=== PATIENT | male | born 1945 | race Caucasian/White ===

== ENCOUNTER 2016-12-20 15:28 | Observation (INO) | payer MEDICARE ==
[~2016-12-20] VITALS: Ht 172.7 cm; Wt 128.3 kg
--- NOTE | ~2016-12-20 | EC ---
PATIENT:ISAEL KENDALL DATE OF SERVICE: 12/20/16 SEX: M MEDICAL RECORD: [id number] DATE OF : [birth year] LOCATION:D.M2 D.212 AGE OF PATIENT: 71 ADMISSION DATE: 12/20/16 REFERRING PHYSICIAN: INTERPRETING PHYSICIAN: ANTOINE JASON M.D. ECHOCARDIOGRAM REPORT ECHO CHARGES 4 ECHO COMPLETE CLINICAL DIAGNOSIS: A-FIB ECHOCARDIOGRAPHIC MEASUREMENTS (adult normal given) AC root (d.<3.7cm) 3.5 LV Septum d (<1.2 cm> 2.0 Valve Excursion 1.9 LV Septum (systole) 2.7 Left Atria (s.<4.0cm> 4.4 LVPW d(<1.2cm) 1.9 RV (d.<2.3cm) 3.5 LVPW (sytole) 2.5 LV diastole(<5.6CM) 4.8 MV E-F(>70mm/sec) LV systole 2.6 LVOT Diameter 2.0 MV exc.(>10mm) Est.ejection fraction (50-75%) Pericardial Effusion N DOPPLER: LVIT A E 118 LA RVSP 38.1 LVOT 118 AOP1/2T Asc. Ao 223 RVOT 95.0 RA PA 127 AV Gradient Peak 20.0 AV Mean 9.1 AV Area 1.3 MV Gradient Peak 8.7 MV Mean 3.5 MV Area COMMENTS: Postal Delivery Officer: Andra ESCALANTEOE Hvac Engineering Technician:Erika Jason TAPE# PACS DATE OF SERVICE: 12/21/2016 REFERRING PHYSICIAN: Kaley Daniel MD INDICATION: Atrial fibrillation. DESCRIPTION: Left ventricle demonstrates left ventricular hypertrophy. No wall motion abnormalities are noted. Estimated ejection fraction is 55%. Mitral valve is structurally normal. There is moderate regurgitation seen. Left atrium is mildly dilated. The aortic valve is trileaflet. There is trivial ECHOCARDIOGRAM REPORT [id number] ISAEL KENDALL insufficiency seen, but no evidence of stenosis. Right ventricle is mildly dilated. Tricuspid valve is normal. There is mild to moderate regurgitation noted. Right ventricular systolic pressure is elevated at 38 mmHg. There is no pericardial effusion seen. IMPRESSION: 1. Left ventricular hypertrophy with preserved ejection fraction of 55%. 2. Moderate mitral regurgitation. 3. Mild to moderate tricuspid regurgitation. TRANSINT:[id number] Voice Confirmation ID: [id number] DOCUMENT ID: [id number] ANTOINE JASON M.D. CC: [id number] DICTATION DATE: 12/22/16810 SOCIAL WORK SUPERVISOR: 12/22/16 1056 ADM IN [place] [id number] [place] [address]
--- NOTE | ~2016-12-20 | OP ---
PATIENT NAME: ISAEL KENDALL MEDICAL RECORD: [id number] :46 LOCATION:D. D.2120 ADMISSION DATE:12/20/16 SURGEON: ANTOINE OLEARY M.D. DATE OF OPERATION: 12/22/2016 REFERRING PHYSICIAN: Kaley Daniel MD PROCEDURES PERFORMED: 1. Selective coronary angiography. 2. Left heart catheterization with ventriculogram. 3. PTCA and stent placed in the circumflex artery. INDICATION: A 71-year-old gentleman presents with unstable angina and abnormal cardiac enzymes. EQUIPMENT USED: Diagnostic 5-Bermudian JL4, Almas right, pigtail catheter. INTERVENTION: A 6-Bermudian EBU 3.75 guide, BMW guide wire, 3.5 x 15 mm Integrity stent. TECHNIQUE: A 5-Bermudian sheath was inserted in retrograde fashion in the right common femoral artery. Next, selective coronary angiography was performed in standard 5-Bermudian JL4 and Almas right. Left heart catheterization performed using pigtail catheter. CORONARY ANATOMY: 1. Left main: Left main trunk is large in caliber. It gives rise to the LAD and circumflex. It is angiographically normal. 2. LAD: This is a large caliber vessel extending to the apex. It has mild irregularities throughout its course, but nothing worse than 20%. 3. Circumflex: This vessel is large in caliber. The proximal vessel has a hazy 70% to 80% stenosis, which represents a ruptured plaque. 4. Right coronary: This vessel is moderate in caliber and dominant. The proximal vessel has been stented. The stent is widely patent. There is no evidence of restenosis. 5. Left ventricle: Left ventricle is slightly enlarged. The apex is severely hypokinetic. Its ejection is in the order of 30%. DESCRIPTION OF INTERVENTION: A 6-Bermudian sheath was inserted in retrograde fashion in the right common femoral artery. Next, 100 units per kilogram of heparin was infused. A 6-Bermudian EBU 3.75 guide was advanced and engaged in the left main coronary artery. Next, a BMW guide wire was placed in the distal vessel. A 3.5 x 15 mm Integrity stent was placed across the stenosis in the proximal circumflex. The stent was deployed at 16 atmospheres. Injection shows stent to be widely patent with 0% residual stenosis. There is marked improvement in distal flow. At this point, the wire and guide were removed. IMPRESSION: Successful percutaneous transluminal coronary angioplasty and stenting to the circumflex with 0% residual stenosis. TRANSINT:[id number] Voice Confirmation ID: [id number] DOCUMENT ID: [id number] OPERATIVE REPORT [id number] ISAEL KENDALL TIMOTHY E M.D. CC: [id number] DICTATION DATE: 12/22/16937 SCHEDULING ADMINISTRATOR: 12/22/16 1312 ADM IN [facility] [address] [place] [address]
--- NOTE | ~2016-12-20 | HEMODYNAMI ---
PATIENT:ISAEL KENDALL MEDICAL RECORD: [id number] : 46 LOCATION:[address] ADMISSION DATE: 12/20/16 Generatedon:12/22/20169:40 Patient name: ISAEL KENDALL Patient #: [id number] SSN: : 1945 Date of study: 12/22/2016 Page: Of Hemodynamic Procedure Report Patient Data Patient Demographics Procedure consent was obtained First Name: ISAEL Gender: Male Last Name: FAIZA : 1945 Patient #: [id number] Age: 71 year(s) Race: Unknown Additional ID: [id number] Contact details Address: , State: [place] City: [facility] Zip code: [address] Past Medical History Allergies Allergen Reaction Date Comments Reported Morphine 12/22/2016 Admission Admission Data Admission Date: 12/20/2016 Admission Time: 18:21 Room #: D.2120 Lab Results Lab Result Date: 12/22/2016 Lab Result Time: 0:00 Biochemistry Name Units Result Min Max BUN mg/dl 25 --(----)-* 7 18 Creatinine mg/dl 1.2 --(---*)-- 0.6 1.3 CBC Name Units Result Min Max Hemoglobin g/dl 13.4 -*(----)-- 13.5 17.5 Procedure Procedure Types Cath Procedure Diagnostic Procedure [facility] w/Coronaries PCI Procedure Coronary Stent Initial Miscellaneous Procedures Moderate Sedation up to 30 minutes Procedure Description Procedure Date Procedure Date: 12/22/2016 Procedure Start Time: 9:11 Procedure End Time: 9:38 Procedure Staff Name Function Ra Jason MD Performing Physician Kingston Henning RT Scrub Tameka Mohamud RN Nurse Delgado Fernandez RT Monitor Procedure Data Cath Procedure Fluoroscopy Diagnostic fluoroscopy Total fluoroscopy Time: 3.7 time: 3.7 min min Diagnostic fluoroscopy Total fluoroscopy dose: dose: 1200 mGy 1200 mGy Contrast Material Contrast Material Type Amount (ml) Isovue 300 127 Entry Location Entry Primary Successful Side Size Upsize Upsize Entry Closure Succes sful Closure Location (Fr) 1 (Fr) 2 (Fr) Remarks Device Remarks Femoral Right 5 Fr 6 Fr Exoseal artery Short Estimated blood loss: 10 ml Diagnostic catheters Device Type Used For End Catheter Placement Cordis 5Fr JL 4.0 Procedure Catheter (MP) Cordis 5Fr 3DRC Catheter Procedure (MP) Cordis 5Fr Pigtail Procedure Catheter (MP) Procedure Complications No complications Procedure Medications Medication Administration Route Dosage Oxygen NC 2 l/min Heparin Flush Bag added to field 2 bags (1000units/500ml NS) Lidocaine 2% added to field 20 Versed I.V. 1 mg Fentanyl I.V. 50 mcg Versed I.V. 1 mg Fentanyl I.V. 50 mcg Fentanyl I.V. 50 mcg Heparin Bolus I.V. 42691 units Fentanyl I.V. 50 mcg Brilinta P.O. 180 mg Hemodynamics Rest HGB: 13.4 (g/dl) Heart Rate: 83 (bpm) Pressure Samples Time Site Value (mmHg) Purpose Heart Use Rate(bpm) 9:14 AO 144/117(128) Snapshot 90 9:18 LV 164/12,27 Snapshot 86 9:20 AO 163/113(134) Pullback 80 9:20 LV 155/-2,11 Pullback 80 Gradients Valve Time Site 1 Site 2 Mean SEP/DFP Peak To Heart Use (mmHg) (sec/min) Peak Rate (mmHg) (bpm) Aortic 9:20 LV AO 0 8 0 80 155/-2,11 163/113(134) Calculations Valve P-P Mean Valve Index Valve Source Name Gradient Area Flow (cm2) Aortic 0 0 0 0 Snapshots Pre Cath Intra NCS Post Cath Vital Signs Time Heart Resp SPO2 etCO2 MU3dmrz NIBP (mmHg) Rhythm Pain Sedation Rate (ipm) (%) (mmHg) (mmHg) Status Level (bpm) 8:39:42 95 23 99 0 0 151/121(136) NSR 0 (11) 10(A) , No pain 8:48:34 92 17 98 0 0 142/107(127) NSR 0 (11) 10(A) , No pain 8:52:56 95 17 95 0 0 140/101(131) NSR 0 (11) 10(A) , No pain 8:57:16 86 22 95 0 0 144/115(128) NSR 0 (11) 10(A) , No pain 9:01:39 90 18 96 0 0 147/109(134) NSR 0 (11) 10(A) , No pain 9:06:01 93 18 96 0 0 162/124(128) NSR 0 (11) 10(A) , No pain 9:10:19 76 17 95 0 0 146/102(123) NSR 0 (11) 10(A) , No pain 9:14:43 99 15 96 0 0 142/99(105) NSR 0 (11) 9(A) , No pain 9:19:05 94 15 95 0 0 149/105(125) NSR 0 (11) 9(A) , No pain 9:23:23 111 15 95 0 0 148/112(135) NSR 0 (11) 9(A) , No pain 9:27:47 93 15 95 0 0 135/102(129) NSR 0 (11) 9(A) , No pain 9:32:05 95 16 97 0 0 148/104(139) NSR 0 (11) 10(A) , No pain 9:36:24 92 14 96 0 0 124/104(119) NSR 0 (11) 9(A) , No pain Medications Time Medication Route Dose Verified Delivered Reason Notes Effectiveness by by 8:38:36 Oxygen NC 2 Ra Tameka Per physician l/min Eren Mohamud RN 8:38:44 Heparin Flush added 2 Ra Ra for local Bag to bags Eren Jason MD anesthetic (1000units/500ml field NS) 8:38:51 Lidocaine 2% added 20ml Ra Ra used for to vial Eren Jason MD procedure field 9:06:56 Versed I.V. 1 mg Ra Tameka for sedation Eren Mohamud RN 9:07:02 Fentanyl I.V. 50 Ra Tameka for sedation mcg Eren Mohamud RN 9:09:26 Versed I.V. 1 mg Ra Tameka for sedation Eren Mohamud RN 9:09:37 Fentanyl I.V. 50 Ra Tameka for sedation mcg Eren Mohamud RN 9:12:28 Fentanyl I.V. 50 Ra Tameka for sedation mcg Eren Mohamud RN 9:18:39 Fentanyl I.V. 50 Ra Tameka for sedation mcg Eren Mohamud RN 9:24:58 Heparin Bolus I.V. 50900 Ra Tameka for dose units Eren Mohamud RN anticoagulation verified wtih dr jason 9:32:52 Brilinta P.O. 180 Ra Tameka for mg Eren Mohamud RN antiplatelet therapy Procedure Log Time Note 7:48:12 Diagnostic Cath status Elective 7:48:34 Time tracking: Regular hours 7:48:41 Plan of Care:Hemodynamics will remain stable., Cardiac rhythm will remain stable., Comfort level will be maintained., Respiratory function will remain adequate., Patient/ family verbilizes understanding of procedure., Procedure tolerated without complication., Recovers from procedure without complications.. 7:49:18 Lab Result : Hemoglobin 13.4 g/dl 7:49:18 Lab Result : Creatinine 1.2 mg/dl 7:49:18 Lab Result : BUN 25 mg/dl 8:10:00 Kingston Henning RT(R) sent for patient. Start room use. 8:25:47 Patient received from PCU to CCL 1 Alert and oriented. Tansferred to table in Supine position. 8:25:49 Warm blankets applied, and martine hugger turned on for patient comfort. 8:25:49 Correct patient and procedure confirmed by team. 8:25:51 Signed procedure consent form obtained from patient. 8:25:51 ECG and BP/O2 sat monitors applied to patient. 8:38:24 Vital chart was started 8:38:36 Oxygen 2 l/min NC was administered by Tameka Mohamud RN; Per physician; 8:38:44 Heparin Flush Bag (1000units/500ml NS) 2 bags added to field was administered by Ra Jason MD; for local anesthetic; 8:38:51 Lidocaine 2% 20ml vial added to field was administered by Ra Jason MD; used for procedure; 8:43:27 Baseline sample Acquired. 8:44:00 Baseline sample Acquired. 8:44:05 Rhythm: atrial fibrillation 8:44:07 Full Disclosure recording started 8:45:58 H&P Date Dictated: 12/20/2016 Within 30 days and on chart., H&P Addendum completed by physician on day of procedure. (MUST COMPLETE FOR ALL OUTPATIENTS). 8:45:58 Pre-procedure instructions explained to patient. 8:45:59 Pre-op teaching completed and patient verbalized understanding. 8:46:00 Family in waiting room. 8:46:02 Patient NPO since Midnight. 8:46:17 Patient allergic to Morphine 8:46:19 Is the patient allergic to Iodine/contrast media? No. 8:46:25 Is patient on blood thinner?Yes 8:47:00 Eliquis last dose on 12/20/16 8:47:04 Patient diabetic? No. 8:47:08 Previous problem with sedation/anesthesia? No ? 8:47:10 Snore? Yes 8:47:10 Sleep apnea? Yes 8:47:12 Deviated septum? No 8:47:13 Opens mouth fully? Yes 8:47:14 Sticks out tongue? Yes 8:47:16 Airway obstruction? No ? 8:47:19 Dentures? No ? 8:47:26 Pre procedure: right dorsailis pedis pulse 1+ Palpable, but thready & weak; easily obliterated 8:48:14 Unable to palpate radial pulse. 8:48:45 Patient pain scale 0/10 ?. 8:48:51 IV patent on arrival in right hand with 0.9% NaCl at [facility]. 8:49:28 Lab results completed and on chart. 8:49:38 Right groin area was prepped with chlora-prep and draped in sterile fashion 8:49:39 Alarms reviewed by R. N. 8:49:40 Sharps counted by scrub and verified by R.N. 8:52:21 Use device set Femoral Dx 8:52:23 Tegaderm 4 x 4 opened to sterile field. 8:52:24 Acist Hand Control opened to sterile field. 8:52:24 Acist Manifold opened to sterile field. 8:52:26 Acist Syringe opened to sterile field. 8:52:26 Bag Decanter opened to sterile field. 8:52:27 Medline Cath Pack opened to sterile field. 8:52:27 Terumo 5Fr Orange Sheath opened to sterile field. 8:52:27 St Severiano 260cm J .035 wire opened to sterile field. 8:52:29 Diagnostic Infinity 5Fr Multipack catheter opened to sterile field. 8:56:11 Zero performed for pressure channel P1 9:06:35 --------ALL STOP TIME OUT------ 9:06:36 Final Timeout: patient, procedure, and site verified with staff and physician. All members of the team are in agreement. 9:06:38 Right groin site verified by team. 9:06:41 Physical assessment completed. ASA score P 2 - A patient with mild systemic disease as per Ra Jason MD. 9:06:44 Sedation plan: IV Moderate Sedation Versed, Fentanyl 9:06:56 Versed 1 mg I.V. was administered by Tameka Mohamud RN; for sedation; 9:07:02 Fentanyl 50 mcg I.V. was administered by Tameka Mohamud RN; for sedation; 9::26 Versed 1 mg I.V. was administered by Tameka Mohamud RN; for sedation; 9::37 Fentanyl 50 mcg I.V. was administered by Tameka Mohamud RN; for sedation; 9:11:23 Procedure started. 9:11:26 Local anesthetic to right femoral artery with Lidocaine 2% by Ra Jason MD.INITIAL ACCESS ONLY 9:12:28 Fentanyl 50 mcg I.V. was administered by Tameka Mohamud RN; for sedation; 9:13:16 A 5 Fr sheath was inserted into the Right Femoral artery 9:13:37 A Cordis 5Fr JL 4.0 Catheter (MP) was advanced over the wire and used for Procedure. 9:14:28 LCA angiography performed. 9:15:51 Catheter exchanged over wire. 9:15:58 A Cordis 5Fr 3DRC Catheter (MP) was advanced over the wire and used for Procedure. 9:17:07 RCA angiography performed. 9:17:26 Catheter exchanged over wire. 9:17:48 A Cordis 5Fr Pigtail Catheter (MP) was advanced over the wire and used for Procedure. 9:18:19 Terumo 6Fr Orange Sheath opened to sterile field. 9:18:20 Quezada BMW Payson 2 J-tip 300cm 0.014 guide wir opened to sterile field. 9:18:20 High Pressure Extension Tubing (Eren) opened to sterile field. 9:18:20 [employer] BasixCompak Inflation Kit opened to sterile field. 9:18:21 Medtronic Launcher 6Fr EBU 3.75 guide catheter opened to sterile field. 9:18:39 Fentanyl 50 mcg I.V. was administered by Tameka Mohamud RN; for sedation; 9:21:31 LV angiography performed. 9:21:32 LV gram done using HERNANDEZ 9:21:40 EF : 30 % 9:21:41 LV hemodynamics recorded. 9:21:44 Injector settings: Ml/sec: 10, Volume: 20, 9:22:07 Catheter exchanged over wire. 9::24 Sheath upsized to a 6 Fr Short. 9:23:12 ACC PCI Site: [facility] has 70% stenosis. 9:23:13 ACC Pre-intervention KEISHA Flow is 3. 9:23:19 6 Fr EBU 3.75 guide catheter was inserted over the wire 9:24:58 Heparin Bolus 59280 units I.V. was administered by Tameka Mohamud RN; for anticoagulation; dose verified wtih dr jason 9:25:41 BMW wire advanced. 9:26:57 Wire advanced across lesion. 9:29:15 Inflation Number: 1 A Invuptronic Integrity 3.5 X 15 stent was prepped and advanced across the Mid CX. The stent was deployed at 16 MARK ANTHONY for 0:10 (min:sec). 9:30:58 ACC Post-intervention KEISHA Flow is 3. 9:30:59 Stent catheter was removed intact over wire. 9:31:00 Wire removed. 9:31:00 Guide catheter removed. 9:31:33 Cordis 6Fr Exoseal opened to sterile field. 9:31:50 Sheath removed intact; hemostasis achieved with Exoseal to the Right Femoral artery. 9:31:53 Procedure ended.(Physican Out) 9:32:06 Fluoroscopy time 03.70 minutes. 9:32:11 Fluoroscopy dose: 1200 mGy 9:32:11 Flurop Dose total: 1200 9:32:15 Contrast amount:Isovue 300 127ml. 9:32:17 Sharps counted by scrub and verified by R.N. 9:32:19 Insertion/operative site no bleeding no hematoma. 9:32:22 Post-op/insertion site Right Femoral artery dressed using a 4 x 4 and Tegaderm. 9:32:23 Post Procedure Pulses reassessed and unchanged 9:32:26 Post-procedure physical assessment completed. ASA score P 2 - A patient with mild systemic disease as per Ra Jason MD. 9:32:28 Post procedure rhythm: unchanged. 9:32:31 Estimated blood loss: 10 ml 9:32:33 Post procedure instruction explained to patient.Patient verbalizes understanding. 9:32:33 Patient needs reinforcement of post procedure teaching. 9:32:52 Brilinta 180 mg P.O. was administered by Tameka Mohamud RN; for antiplatelet therapy; 9:32:54 Procedure type changed to Cath procedure, Diagnostic procedure, LHC, LHC w/Coronaries, PCI procedure, Coronary Stent Initial, Miscellaneous Procedures, Moderate Sedation up to 30 minutes 9:32:56 Procedure and supply charges have been captured, reviewed, submitted and are correct. 9:32:59 Procedure Complication : No complications 9:38:18 Vital chart was stopped 9:38:18 See physician's report for complete and final results. 9:38:22 Report given to PCU. 9:38:26 Patient transfered to PCU with Bed. 9:38:30 Procedure ended. 9:38:30 Full Disclosure recording stopped 9:38:43 End room use (Document Last) Intervention Summary Intervention Notes Time ActionType Lesion and Equipment Action# Pressure Duration Attributes Used 9:29:15 Place stent Mid CX Medtronic 1 16 00:10 Integrity 3.5 X 15 stent Device Usage Item Name Manufacture Quantity Catalog Hospital Part Current Minimal L ot# / Number Charge Number Stock Stock Serial# Code Tegaderm 4 3M 1 1626W [id number] 941120 590210 5 x 4 Acist Hand Acist 1 61051 849488 071271 067580 5 Control Medical Systems Inc Acist Acist 1 41037 575266 247951 290559 5 Manifold Medical Systems Inc Acist Acist 1 49710 839774 102126 698740 20 Syringe Medical Systems Inc Bag Microtek 1 2002S 615392 88747 391992 5 DecMount Knowledge USA Medical Inc. Medline Cardinal 1 [id number] 968552 50605 266368 5 Cath Team Everest Terumo 5Fr Terumo 1 [id number] 056538 784499 673423 [address] St Severiano 1 [id number] 819529 302665 793199 30 260cm J .035 wire Diagnostic Cardinal 1 [id number] 639698 28379 582946 30 Infinity Health 5Fr Multipack catheter Cordis 5Fr Cardinal 1 228471 5 JL 4.0 Health Catheter (MP) Cordis 5Fr Cardinal 1 983881 5 3DRC Health Catheter (MP) Cordis 5Fr Cardinal 1 930617 5 Pigtail Health Catheter (MP) Terumo 6Fr Terumo 1 [id number] 998479 668387 186294 40 Orange Sheath Quezada BMW Quezada 1 [id number] 183667 075499 149398 5 Payson 2 Vascular J-tip 300cm 0.014 guide wir High Merit 1 [id number] 634874 91345 584923 10 Pressure Medical Extension Tubing (Jason) Merit Merit 1 [id number] 398213 959997 756379 15 BasixCompak Medical Inflation Kit Medtronic Medtronic 1 [id number] 628489 69315 937486 1 Launcher 6Fr EBU 3.75 guide catheter Medtronic Medtronic 1 [id number] 996151 566681 430761 1 0 [id number] Integrity 3.5 X 15 stent Cordis 6Fr Cardinal 1 EX600 878400 253764 450044 10 Teikon Signature Audit [place] Stage Time Signature Unsigned Intra-Procedure 12/22/2016 Delgado Fernandez 9:40:40 AM RT(R) Signatures Monitor : Delgado Fernandez RT Signature : Date : Time : [place] [id number] [place] [address]
[2016-12-20 15:50] LABS: APPEARANCE CLEAR (CLEAR); BILIRUBIN NEGATIVE (NEGATIVE); COLOR YELLOW (YELLOW); GLUCOSE NEGATIVE (NEGATIVE); KETONE NEGATIVE (NEGATIVE); LEUKOCYTE ESTERASE NEGATIVE (NEGATIVE); NITRITE NEGATIVE (NEGATIVE); PH 7.5 (5.0-6.0); PROTEIN NEGATIVE (NEGATIVE); UROBILINOGEN NORMAL (NORMAL)
[2016-12-20 15:57] LABS: UDS - AMPHET NEGATIVE QUAL (NEGATIVE); UDS - BARB NEGATIVE QUAL (NEGATIVE); UDS - BENZO NEGATIVE QUAL (NEGATIVE); UDS - COCAINE NEGATIVE QUAL (NEGATIVE); UDS - METH NEGATIVE QUAL (NEGATIVE); UDS - OPIATE POSITIVE QUAL (NEGATIVE); UDS - PCP NEGATIVE QUAL (NEGATIVE); UDS - THC NEGATIVE QUAL (NEGATIVE)
[2016-12-20 16:04] LABS: BASOPHILS 0.4 % (0.0-2.0); EOSINOPHILS 1.2 % (0-7); HEMATOCRIT 39.1 % (42.0-54.0); IMMATURE GRANULOCYTES 0.4 % (0-5); LYMPHOCYTES 18.5 % (15-50); MCH 32.5 pg (26.0-34.0); MCHC 33.2 g/dL (31.0-37.0); MCV 97.8 fL (80.0-100.0); MEAN PLATELET VOLUME 10.2 fL (7.4-10.4); MONOCYTES 8.4 % (2-11); NEUTROPHILS 71.1 % (40-80); PLATELET COUNT 220 10x3/uL (130-400); RDW 13.2 % (11.5-14.5); WBC 9.9 10x3/uL (4.8-10.8)
[2016-12-20 16:20] LABS: ALBUMIN 3.3 g/dL (3.4-5.0); ALKALINE PHOSPHATASE 167 U/L (46-116); ALT (SGPT) 22 U/L (10-68); BILIRUBIN - TOTAL 0.44 mg/dL (0.2-1.3); CALC OSMOLALITY 279 mosm/kg (275-300); CALCIUM 8.2 mg/dL (8.5-10.1); CARBON DIOXIDE 24.7 mmol/L (21.0-32.0); CHLORIDE - SERUM 105 mmol/L (98-107); CREATININE - SERUM 0.9 mg/dL (0.6-1.3); GLUCOSE 122 mg/dL (74-106); POTASSIUM - SERUM 3.9 mmol/L (3.5-5.1); SODIUM 140 mmol/L (136-145); UREA NITROGEN 13 mg/dL (7-18); eGFR NON AFRICAN AMERICAN 89 mL/min (90-120)
[2016-12-20 16:35] LABS: CREATINE KINASE 52 UL (21-232)
[2016-12-20 16:38] LABS: TROPONIN-I 0.218 ng/mL (0.000-0.060)
--- NOTE | 2016-12-20 19:53 | NUR ---
PT ARRIVED VIA W/C FROM ER. NO DISTRESS NOTED. WILL CONTINUE TO MONITOR.
[2016-12-20 20:09] VITALS: BP 134/90; Ht 172.7 cm; Wt 128.3 kg
[2016-12-20 20:19] VITALS: BP 134/90
[2016-12-20] MEDS ORDERED: ROXICODONE30 MG PO (20:27)
[2016-12-20] MEDS ORDERED: NEURONTIN600 MG PO (20:28)
[2016-12-20] MEDS ORDERED: PACERONE200 MG PO (20:30)
[2016-12-20] MEDS ORDERED: COLCRYS0.6 MG (20:30)
[2016-12-20] MEDS ORDERED: CORDARONE200 MG PO (20:30)
[2016-12-20] MEDS ORDERED: ATIVAN1 MG PO (20:31)
[2016-12-20] MEDS ORDERED: METOPROLOL-HCTZ1 TA3 PO (20:32)
[2016-12-20] MEDS ORDERED: OMEPRAZOLE40 MG PO (20:33)
--- NOTE | 2016-12-20 20:37 | NUR ---
ADMISSION ASSESSMENT. HISTORY AND HOME MEDS COMPLERTED. PT TERESAT, THREATENING TO LEAVE AMA IF HE DOES NOT GET HIS NEURONTINA ND OXYCODONE. STATES MORPHINE MAKES HIM CRAZY. DOESN'T KONW SOME OF HIS MEDS A FORMER CAREGIVER TOOK CARE OF THAT. SISTER AT BEDSIDE.
--- NOTE | 2016-12-20 22:42 | NUR ---
MEDS GIVEN AT 2145 HRS. PT HAPPIER AT THIS TIME. SSANDWICH GIVEN PER REQUEST. KIMMIE CONTINUE TO MONITOR. SR UP X2, CALL LIGHT WITHIN REACH.
--- NOTE | 2016-12-20 23:57 | NUR ---
PT HAS C/O DIARRHEA AND STOMACH CRAMPING. PT REQUESTING GI COCKTAIL. Kev MONROE RN HS NOTIFIED TO SPEAK TO ERMD. WILL CONTINUE TO MONITOR.
[2016-12-21] VITALS: BP 134/82
--- NOTE | 2016-12-21 03:29 | NUR ---
PT RESTING WITH EYES CLOSED. RESP EVEN AND REGULAR. SR UP X2, CALL LIGHT WITHIN REACH.
[2016-12-21 04:00] VITALS: BP 172/113
--- NOTE | 2016-12-21 05:33 | NUR ---
SR PER CM THROUGHOUT NIGHT. PT CALMER AFTER RECEIVING ATIVAN AND OXYCODONE 30 MG PO. DENIES ANY DISCOMFORT AT THIS TIME. NEEDS MET; WILL CONTINUE TO MONITOR.
--- NOTE | 2016-12-21 07:30 | NUR ---
RECEIVED PT IN BED EYES CLOSED SNORING RESPIRATIONS SKIN W/D COLOR WNL NAD NOTED WILL CONTINUE TO MONITOR
[2016-12-21 08:38] VITALS: BP 120/93
[2016-12-21 08:53] LABS: BASOPHILS 0.6 % (0.0-2.0); EOSINOPHILS 1.4 % (0-7); HEMATOCRIT 39.5 % (42.0-54.0); HEMOGLOBIN 12.9 g/dL (13.5-17.5); IMMATURE GRANULOCYTES 0.4 % (0-5); LYMPHOCYTES 25.5 % (15-50); MCH 32.3 pg (26.0-34.0); MCHC 32.7 g/dL (31.0-37.0); MCV 98.8 fL (80.0-100.0); MEAN PLATELET VOLUME 10.6 fL (7.4-10.4); MONOCYTES 10.7 % (2-11); NEUTROPHILS 61.4 % (40-80); PLATELET COUNT 246 10x3/uL (130-400); RDW 13.4 % (11.5-14.5); WBC 9.6 10x3/uL (4.8-10.8)
[2016-12-21 08:54] LABS: CALC OSMOLALITY 281 mosm/kg (275-300); CALCIUM 8.5 mg/dL (8.5-10.1); CARBON DIOXIDE 26.1 mmol/L (21.0-32.0); CHLORIDE - SERUM 104 mmol/L (98-107); GLUCOSE 118 mg/dL (74-106); SODIUM 140 mmol/L (136-145); eGFR NON AFRICAN AMERICAN 78 mL/min (90-120)
[2016-12-21 08:58] LABS: UREA NITROGEN 18 mg/dL (7-18)
[2016-12-21 12:45] VITALS: BP 168/112
[2016-12-21 17:05] VITALS: BP 158/96
[2016-12-21 20:00] VITALS: BP 145/892
--- NOTE | 2016-12-21 22:05 | NUR ---
INITIAL ROUNDS COMPLETED AT 1920 HRS. PT RESTING WITH EYES CLOSED. RESP EVEN AND REGULAR. ASESSMENT COMPLETED AT 1999 HRS. PT HAS C/O SEVERE CHRONIC FOOT PAIN 05/24. DILAUDID 1MG SIVP GIVEN TO IV TO R HAND. VSS. O2 2LNC. CAF PER CM HR 97. LUNGS DIMINISHED IN BASES BILAT. ALERT AND ORIENTED TO PERSON,PLACE AND TIME. PM MEDS GIVNE. OXYIT AND ATIVAN P GIVEN PER PT'S REQUEST FOR ANXIETY AND PAIN 05/24. PT CURRENTLY RESTING WITH EYES CLOSED. RESP EVEN AND REGULAR. SR UP X2, CALL LIGHT WITHIN REACH.
--- NOTE | 2016-12-22 00:10 | NUR ---
PT UP IN SHOWER. WILL CONTINUE TO MONITOR.
[2016-12-22 02:00] VITALS: BP 171/84
--- NOTE | 2016-12-22 03:01 | NUR ---
PT RESTING WITH EYES CLOSED. RESP EVEN AND REGULAR. SR UP X2,CALL LIGHT WITHIN REACH.
[2016-12-22 04:00] VITALS: BP 152/104
--- NOTE | 2016-12-22 04:19 | NUR ---
PT RESTING WITH EYES CLOSED. RESP EVEN AND REGULAR. SR UP X2, CALL LIGHT WITHIN REACH.
[2016-12-22 05:19] LABS: BASOPHILS 0.4 % (0.0-2.0); EOSINOPHILS 1.5 % (0-7); HEMATOCRIT 40.6 % (42.0-54.0); HEMOGLOBIN 13.4 g/dL (13.5-17.5); IMMATURE GRANULOCYTES 0.3 % (0-5); LYMPHOCYTES 24.7 % (15-50); MCH 31.9 pg (26.0-34.0); MEAN PLATELET VOLUME 10.4 fL (7.4-10.4); MONOCYTES 11.6 % (2-11); NEUTROPHILS 61.5 % (40-80); PLATELET COUNT 227 10x3/uL (130-400); WBC 9.2 10x3/uL (4.8-10.8)
[2016-12-22 05:26] LABS: MCV 96.7 fL (80.0-100.0)
[2016-12-22 05:50] LABS: ANION GAP 11.3 mmol/L (8-16); CALCIUM 8.8 mg/dL (8.5-10.1); CARBON DIOXIDE 29.6 mmol/L (21.0-32.0); CREATININE - SERUM 1.2 mg/dL (0.6-1.3); POTASSIUM - SERUM 3.9 mmol/L (3.5-5.1)
--- NOTE | 2016-12-22 06:09 | NUR ---
VSS THROUGHOUT NIGHT. CAF PER CM. PT ASKING FOR PAIN MEDS FOR HIS CHRONIC LEG PAIN. INFORMED THAT HIS LAST DOSE WAS AT 0200 AND NEXT DOSE NOT DUE UNTIL 0800. PT ADAMANT THAT 0200 DOSE WAS NOT GIVEN. PT SHOWN COMPUTER SCREEN AND PROCESS EXPLAINED. PT THEN STATES HE DID NOT REMEMBER. WILL CONTINUE TO MONITOR. NPO FOR 0830 [facility].
[2016-12-22 08:06] VITALS: BP 160/102
--- NOTE | 2016-12-22 08:21 | NUR ---
PRE-OPS GIVEN. TO LOG WASHER BY BED.
--- NOTE | 2016-12-22 10:04 | NUR ---
BACK FROM [facility] LAP TENDER. RIGHT GROIN STABLE WITHOUT BLEEDING OR HEMATOMA NOTED. WILL MONITOR.
[2016-12-22 12:00] VITALS: BP 134/80
[2016-12-22] MEDS ORDERED: ASPIRIN325 MG PO (13:00)
[2016-12-22] MEDS ORDERED: BRILINTA90 MG PO (13:00)
--- NOTE | 2016-12-22 14:02 | NUR ---
BED REST UP. GROIN STABLE.
[2016-12-22 15:43] VITALS: BP 129/81
--- NOTE | 2016-12-22 19:15 | NUR ---
INITIAL ROUNDS MADE. PT LYING IN BED WATCHING TV. NO NEEDS OR C/O VOICED AT THIS TIME. CALL LIGHT IN REACH. WILL CONT TO MONITOR.
[2016-12-22 20:00] VITALS: BP 140/83
[2016-12-23] VITALS: BP 175/95
--- NOTE | 2016-12-23 07:45 | NUR ---
I WAS NOTIFIED BY DIONI/GUILLAUME THAT PT WANTED TO LEAVE NOW AND NOT WAIT THE FULL 24 HOURS BECAUSE HE WANTED HIS OXYCODONE FOR HIS NEUROPATHY. I WENT INTO ROOM TO SPEAK WITH PT. I ADVISED HE WOULD BE LEAVING AGAINST MEDICAL ADVISE. HE SAID THAT WAS OK. I TOLD HIM TO GIVE ME TEN MINUTES TO GET PAPERWORK TOGETHER AND TO NOTIFY DR. OLEARY.
[2016-12-23 07:47] VITALS: BP 160/91
--- NOTE | 2016-12-23 07:55 | NUR ---
DR. OLEARY ON MED [address] OLEARY OK FOR PT TO LEAVE AND DRIVE HIMSELF HOME AND LEAVE AMA. MAY LEAVE AT 1000 AND BE OUT 24 HOURS.
--- NOTE | 2016-12-23 08:10 | NUR ---
REVIEWED DISCHARGE INSTRUCTIONS AND MEDICATIONS WITH PT. VERBAL AND WRITTEN ACKNOWLEDGEMENT RECEIVED FROM PT. OFFERED TO CALL PT'S SISTER NOELLE TO GIVE PT A RIDE HOME PER PT'S REQUEST. LEFT MESSAGE FOR NOELLE/SISTER TO CALL.
--- NOTE | 2016-12-23 08:35 | NUR ---
PT REFUSING TO WAIT UNTIL 1000 TO LEAVE. REQUESTING TO LEAVE AMA NOW. AMA RELEASE FORM EXPLAINED. RISKS, BENEFITS, ALTERNATIVES EXPLAINED TO PATIENT REGARDING LEAVING AMA. PATIENT SIGNED AMA FORM. MYSELF AND DIONI LEE/RN WITNESSED SIGNATURE. ESHA GALAVIZ/UNIT MGR AWARE OF SITUATION. PATIENT WILL BE ESCORTED TO VEHICLE VIA WHEELCHAIR BY BRIDGE/STRUCTURE INSPECTION TEAM LEADER.
--- NOTE | 2016-12-23 08:57 | NUR ---
REFUSES TO WAIT TILL 10AM TO DC. LEAVING AMA. AMA PAPER WORK SIGNED.
--- NOTE | 2016-12-23 15:52 | DS ---
PATIENT:ISAEL KENDALL :47 MEDICAL RECORD: [id number] DISCHARGE SUMMARY ADMISSION DATE: 12/20/16 DISCHARGE DATE: 12/23/16 DATE OF ADMISSION: 12/20/2016 DATE OF DISCHARGE: 12/22/2016 ADMITTING DIAGNOSES: Coronary artery disease with shortness of breath and arm pain, hypertension, tachycardia and atrial fibrillation. HOSPITAL COURSE: This is a gentleman from [place] admitted as a med on-call with diagnoses as outlined above. Details are well-outlined in the history of the present illness, H&P. All events, lab procedures, and diagnostic testing are well documented in the records. The patient was admitted, appropriate home medicines continued. Cardiac enzymes cycled. Echocardiogram obtained, read by Dr. Jason. EF 55%, moderate mitral regurg, [id number] tricuspid regurgitation. Dr. Jason also consulted for cardiology management. His recommendations were followed. The patient was taken to the label operator today. The patient underwent PTCA and stenting to the circumflex. He tolerated the procedure well. He is stable for dismissal home. Dr. Jason added Brilinta to the medical regimen. He is afebrile. Vital signs stable. LABORATORY DATA: White count is 9, hemoglobin 13, and platelets 227. Sodium 138, potassium 3.9, chloride 101, CO2 of 29.6, BUN 25, serum creatinine 1.2, and glucose 127. He is dismissed home. Diagnoses the same as above. Also, includes coronary artery disease, status post PTCA and stenting to the circumflex, ____ diabetes mellitus type 2 with hyperglycemia. To follow up with his primary care physician in a week. He is from [place]. 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 We will have him follow up with Dr. Jason as well. TRANSINT:[id number] Voice Confirmation ID: [id number] DOCUMENT ID: [id number] Dictated By: RADHA BARFIELD RN I have interviewed/examined the above patient and agree with these documented findings. ANGEL MORGAN MD at 1552 CC: [id number] DICTATION DATE: 12/22/16 1307 INTERNAL GRINDING MACHINE OPERATOR: 12/23/16 0202 DIS IN 12/23/16 [place] [address]
== END 2016-12-23 08:58 | disposition left against medical advice (07) ==
LOC: D.ER 15:28 → D.M2 18:21 → OBSVTIME 18:21 → D.M2 12-23 08:58
PROVIDERS: Emergency Medicine; Internal Medicine Cardiovascular Disease; ADMIT Family Medicine
DX: I25.110 Atherosclerotic heart disease of native coronary artery with unstable angina pectoris (principal); Z95.5 Presence of coronary angioplasty implant and graft; I10 Essential (primary) hypertension; R00.0 Tachycardia, unspecified; I48.0 Paroxysmal atrial fibrillation; Z95.0 Presence of cardiac pacemaker; R79.89 Other specified abnormal findings of blood chemistry

== ENCOUNTER 2016-12-24 13:48 | Inpatient (IN) | payer MEDICARE ==
[~2016-12-24] VITALS: Ht 172.7 cm; Wt 130.9 kg
[~2016-12-24 13:48] MED LIST: ASPIRIN325 MG PO; ATIVAN1 MG PO; BRILINTA90 MG PO; COLCRYS0.6 MG; CORDARONE200 MG PO; METOPROLOL-HCTZ1 TA3 PO; NEURONTIN600 MG PO; OMEPRAZOLE40 MG PO; PACERONE200 MG PO; ROXICODONE30 MG PO
[2016-12-24 14:15] LABS: BASOPHILS 0.3 % (0.0-2.0); EOSINOPHILS 0.4 % (0-7); HEMATOCRIT 46.3 % (42.0-54.0); HEMOGLOBIN 15.9 g/dL (13.5-17.5); IMMATURE GRANULOCYTES 0.5 % (0-5); LYMPHOCYTES 17.7 % (15-50); MCH 33.2 pg (26.0-34.0); MCHC 34.3 g/dL (31.0-37.0); MCV 96.7 fL (80.0-100.0); MEAN PLATELET VOLUME 10.6 fL (7.4-10.4); MONOCYTES 3.8 % (2-11); NEUTROPHILS 77.3 % (40-80); PLATELET COUNT 257 10x3/uL (130-400); RBC 4.79 10x6/uL (4.20-6.10); RDW 13.2 % (11.5-14.5); WBC 11.1 10x3/uL (4.8-10.8)
[2016-12-24 14:28] LABS: CHLORIDE - SERUM 103 mmol/L (98-107); SODIUM 139 mmol/L (136-145)
[2016-12-24 14:50] LABS: ALBUMIN 3.6 g/dL (3.4-5.0); ALKALINE PHOSPHATASE 176 U/L (46-116); ALT (SGPT) 26 U/L (10-68); CALC OSMOLALITY 292 mosm/kg (275-300); CALCIUM 9.5 mg/dL (8.5-10.1); CARBON DIOXIDE 23.2 mmol/L (21.0-32.0); CKMB 2.1 U/L (0.0-3.6); CREATINE KINASE 41 UL (21-232); CREATININE - SERUM 1.5 mg/dL (0.6-1.3); PROTEIN - SERUM 8.1 g/dL (6.4-8.2); TROPONIN-I 0.031 ng/mL (0.000-0.060); UREA NITROGEN 32 mg/dL (7-18); eGFR NON AFRICAN AMERICAN 49 mL/min (90-120)
[2016-12-24 15:16] LABS: GLUCOSE 248 mg/dL (74-106)
--- NOTE | 2016-12-24 20:04 | NUR ---
ARRIVED TO FLOOR VIA WHEELCHAIR, ACCOMPANIED BY HOSPITAL STAFF. PLACED ON TELEMETRY 99 CAF WITH PVCS. CARDIZEM @ 10 INFUSING TO RIGHT HAND. DEMANDING HIS HOME MEDS, STATES THE ER TOLD HIM SOON HE GOT TO THE FLOOR HE COULD HAVE HIS HOME MEDS. EXPLAINED TO PT, WOULD HAVE TO BE NOTIFIED. NO OTHER NEEDS NOTED AT THIS TIME. CALL LIGHT IN REACH. WILL CONTINUE TO MONITOR. SEE NURSE ASSESMSENT.
[2016-12-24 20:57] VITALS: BP 108/73
[2016-12-24 23:00] VITALS: BP 99/65
--- NOTE | 2016-12-25 02:57 | NUR ---
OXICODE GIVEN FOR LEG PAIN. WILL CONTINUE TO MONITOR.
[2016-12-25 05:47] VITALS: BP 116/62
--- NOTE | 2016-12-25 06:31 | NUR ---
NO CHANGES FROM PREVIOUS ASSESSMENT, REMAINS NPO UNTIL SEEN BY CARDIAC
[2016-12-25 07:44] VITALS: BP 130/82
--- NOTE | 2016-12-25 08:24 | NUR ---
ASSESSMENT COMPLETED. TELEMERTY SHOWS CAF AT 80. C/O ARMS HURTING, OFFERED TYLENOL OR NITRO. TOOK A NITRO WITH SOME RELIEF AND DIDNT WANT ANY THING ELSE. LEFT HAND SL. SR UP WITH CALL LIGHT IN REACH
[2016-12-25 10:35] VITALS: Ht 172.7 cm; Wt 130.9 kg
[2016-12-25 11:25] VITALS: BP 154/76
--- NOTE | 2016-12-25 11:50 | NUR ---
DR OLEARY HERE. NO NEWW ORDERS.
[2016-12-25 15:37] VITALS: BP 140/77
--- NOTE | 2016-12-25 17:59 | NUR ---
UP ON SIDE OF BED EATING. NO NEEDS VOICED. SR UP WITH CALL LIGHT IN REACH. WILL MONITOR
--- NOTE | 2016-12-25 19:22 | NUR ---
RESUMED CARE OF PT, LYING IN BED RESPIRATIONS EVEN AND UNLABORED ON 2LPM VIA NC. 76 CAF ON TELEMETRY. REQUESTS PAIN MEDICATION AT THIS TIME. RIGHT FOREARM INFUSING CARDIZEM @ 10. CALL LIGHT IN REACH. WILL CONTINUE TO MONITOR. SEE NURSE ASSESSMENT.
[2016-12-25 20:00] VITALS: BP 138/63
[2016-12-26] VITALS: BP 137/89
[2016-12-26 04:00] VITALS: BP 107/71
--- NOTE | 2016-12-26 04:18 | NUR ---
JOURNAL ENTRY AUDIT CLERK AT BEDSIDE TO OBTAIN VITALS, CALL LIGHT IN REACH. WILL CONTINUE WITH PLAN OF CARE.
--- NOTE | 2016-12-26 06:33 | NUR ---
NO CHANGES FROM PREVIOUS ASSESSMENT, CALL LIGHT IN REACH.
[2016-12-26 08:58] VITALS: BP 134/80
[2016-12-26 13:16] VITALS: BP 140/93
[2016-12-26 17:21] VITALS: BP 142/99
[2016-12-26 19:00] VITALS: BP 161/108
--- NOTE | 2016-12-26 19:00 | NUR ---
RECEIVED REPORT AND ASSUMED PT CARE FROM DAY SHIFT NURSE @ THIS TIME.
--- NOTE | 2016-12-26 23:08 | NUR ---
PT RESTING QUIETLY WITHOUT C/O OR DISTRESS NOTED. FEW NEEDS VOICED. CALL LIGHT WITHIN REACH. WILL CONT TO MONITOR.
[2016-12-27] VITALS: BP 167/122
--- NOTE | 2016-12-27 03:02 | NUR ---
PT RESTING WELL, NO CHANGES NOTED IN ASSESSMENT. FEW NEEDS VOICED. CALL LIGHT WITHIN REACH. WILL CONT TO MONITOR.
[2016-12-27 04:00] VITALS: BP 176/76
[2016-12-27 06:54] LABS: BASOPHILS 0 % (0.0-2.0); EOSINOPHILS 0 % (0-7); HEMATOCRIT 42.6 % (42.0-54.0); HEMOGLOBIN 14.9 g/dL (13.5-17.5); IMMATURE GRANULOCYTES 0.4 % (0-5); LYMPHOCYTES 7.4 % (15-50); MCH 33.2 pg (26.0-34.0); MCV 94.9 fL (80.0-100.0); MEAN PLATELET VOLUME 10.7 fL (7.4-10.4); MONOCYTES 2.1 % (2-11); NEUTROPHILS 90.1 % (40-80); PLATELET COUNT 248 10x3/uL (130-400); RBC 4.49 10x6/uL (4.20-6.10); RDW 12.6 % (11.5-14.5); WBC 14.2 10x3/uL (4.8-10.8)
[2016-12-27 07:06] LABS: ANION GAP 14.1 mmol/L (8-16); CALCIUM 9.2 mg/dL (8.5-10.1); CARBON DIOXIDE 24.9 mmol/L (21.0-32.0); CREATININE - SERUM 1.1 mg/dL (0.6-1.3)
[2016-12-27 08:12] VITALS: BP 159/118
[2016-12-27 11:49] VITALS: BP 148/97
--- NOTE | 2016-12-27 12:56 | NUR ---
PTS R.FA PIV INFILTRATED. D/C WITH CATHETER TIP FULLY INTACT. ATTEMPTED TO RESITE AND PT C/O IT BEING PAINFUL AND JERKED HIS ARM. HAD VALDO ANOTHER RN ON THE FLOOR ATTEMPT X2 BUT SHE WAS NOT SUCCESSFUL. CALLED MEDICAL ADMINISTRATOR AND HE ATTEMPTED X1 WITHOUT SUCCESS. WILL TRY AND SEE IF AN ICU NURSE CAN PLACE ONE.
[2016-12-27 15:51] VITALS: BP 103/73
--- NOTE | 2016-12-27 19:00 | NUR ---
RECEIVED REPORT AND ASSUMED PT CARE FROM DAY SHIFT NURSE @ THIS TIME.
--- NOTE | 2016-12-27 20:30 | NUR ---
PT WITHOUT IV ACCESS, RESITED TO RT WRIST WITH 22 GA ANGIOCATH X1 STICK. PT ANTHONY WELL. J-LOOP PLACED TO ANGIOCATH AND DRESSED ACCORDING TO POLICY. ORANGE SWAB CAP PLACED TO SL.
[2016-12-27 20:57] VITALS: BP 140/98
--- NOTE | 2016-12-27 22:30 | NUR ---
PT HAS VISITOR AT THIS TIME. BRINGS PT DOUBLE DEWAYNE CURTIS. EXPLAINED TO PT THIS WAS NOT APART OF HIS ORDERED ADA CARDIAC DIET. PT VERBALIZES UNDERSTANDING AND CONTINUES TO BE NON COMPLIANT WITH PRESCRIBED DIET. PT REMINDED AT MIDNIGHT HE WILL BE NPO, PT VERBALIZES UNDERSTANDING.
--- NOTE | 2016-12-28 00:05 | NUR ---
PT INSTRUCTED ON BEING NPO FOR PIPPIDA SCAN IN THE MORNING. ALSO EXPLAINED THAT PT CAN NOT HAVE ANY NARCOTIC PAIN MEDICATION AFTER 0300. PT VERBALIZES UNDERSTANDING.
--- NOTE | 2016-12-28 02:21 | NUR ---
PT C/O NAUSEA AND NEUROPATHY PAIN TO BLE. DEMEROL 25 MG IM AND PHENERGAN 25 MG IM GIVEN. PT INSTRUCTED THIS WILL BE THE LAST DOSE OF PAIN MEDICATION HE CAN RECEIVE PRIOR TO PIPPIDA SCAN THIS MORNING. PT VERBALIZED UNDERSTANDING.
[2016-12-28 04:30] VITALS: BP 142/96
[2016-12-28 05:56] LABS: HEMATOCRIT 40.4 % (42.0-54.0); HEMOGLOBIN 13.9 g/dL (13.5-17.5); MCH 32.8 pg (26.0-34.0); MCHC 34.4 g/dL (31.0-37.0); MCV 95.3 fL (80.0-100.0); MEAN PLATELET VOLUME 10.7 fL (7.4-10.4); PLATELET COUNT 248 10x3/uL (130-400); RBC 4.24 10x6/uL (4.20-6.10)
[2016-12-28 06:06] LABS: ANION GAP 14.7 mmol/L (8-16); CALCIUM 8.7 mg/dL (8.5-10.1); CARBON DIOXIDE 23.7 mmol/L (21.0-32.0); POTASSIUM - SERUM 4.4 mmol/L (3.5-5.1)
[2016-12-28 06:07] LABS: CREATININE - SERUM 1.4 mg/dL (0.6-1.3)
[2016-12-28 07:33] LABS: ANISOCYTOSIS OCC; LYMPHOCYTES 8 % (15-50); MONOCYTES 3 % (2-11); NEUTROPHILS 89 % (40-80); PLATELET ESTIMATE NORMAL; ROULEAUX OCC
[2016-12-28 08:18] VITALS: BP 135/79
--- NOTE | 2016-12-28 10:00 | NUR ---
TELEMETRY CAF. HR 98. LEAVINF BY W/C TO NM FOR PIPPIDA SCAN. WILL CONT. PLAN OF CARE.
--- NOTE | 2016-12-28 10:27 | NUR ---
REFUSED PIPIDA SCAN.
[2016-12-28 12:42] VITALS: BP 151/87
[2016-12-28 16:00] VITALS: BP 150/94
--- NOTE | 2016-12-28 19:43 | NUR ---
RESUMED CARE OF PT, LYING IN BED RESPIRATIONS EVEN AND UNLABORED ON ROOM AIR. RIGHT WRIST SALINE LOCKED. 91 CAF ON TELEMETRY. CALL LIGHT IN REACH. WILL CONTINUE TO MONITOR. SEE NURSE ASSESSMENT.
[2016-12-28 20:48] VITALS: BP 142/87
--- NOTE | 2016-12-28 23:36 | NUR ---
DEMEROL AND OXICODONE GIVEN FOR PAIN 9:10. CALL LIGHT IN REACH. WILL CONTINUE TO MONITOR.
[2016-12-29 00:30] VITALS: BP 146/83
[2016-12-29 04:30] VITALS: BP 139/85
[2016-12-29 05:32] LABS: BASOPHILS 0.1 % (0.0-2.0); EOSINOPHILS 0.3 % (0-7); HEMATOCRIT 41.3 % (42.0-54.0); IMMATURE GRANULOCYTES 1.8 % (0-5); LYMPHOCYTES 16.5 % (15-50); MCH 32.8 pg (26.0-34.0); MCHC 33.9 g/dL (31.0-37.0); MCV 96.7 fL (80.0-100.0); MEAN PLATELET VOLUME 10.6 fL (7.4-10.4); MONOCYTES 9.5 % (2-11); NEUTROPHILS 71.8 % (40-80); PLATELET COUNT 250 10x3/uL (130-400); RBC 4.27 10x6/uL (4.20-6.10); RDW 13.3 % (11.5-14.5)
[2016-12-29 06:18] LABS: ANION GAP 13.5 mmol/L (8-16); CALCIUM 8.8 mg/dL (8.5-10.1); CARBON DIOXIDE 26.9 mmol/L (21.0-32.0); CREATININE - SERUM 1.2 mg/dL (0.6-1.3); POTASSIUM - SERUM 3.4 mmol/L (3.5-5.1)
--- NOTE | 2016-12-29 06:29 | NUR ---
NO CHANGES FROM PREVIOUS ASSESSMENT, LYING IN BED WITH CALL LIGHT IN REACH.
--- NOTE | 2016-12-29 07:28 | NUR ---
ASSESSMENT COMPLETED. ALERT AND ORIENTED. TELEMERTY SHOWS UCAF. C/O HEARTBURN. UP TO BEDSIDE CHAIR. WILL MONITOR. CALL LIGHT IN REACH WITH SR UP
[2016-12-29 08:00] VITALS: BP 158/98
--- NOTE | 2016-12-29 08:00 | NUR ---
EATING BREAKFAST NAD NOTED
--- NOTE | 2016-12-29 09:39 | NUR ---
DEMEROL 25MG GIVEN IM LEFT HIP FOR C/O ARM PAIN.
--- NOTE | 2016-12-29 10:25 | NUR ---
STATES PAIN IS BETTER, BUT I WANT MY OXY NOW.
[2016-12-29 12:00] VITALS: BP 141/85
--- NOTE | 2016-12-29 16:09 | NUR ---
UP IN HALLWAY. AWAITING DISCHARGE. NO NEEDS VOICED. WILL MONITOR
--- NOTE | 2016-12-29 17:18 | NUR ---
PT DISCHARGED. IV DCD WITH TIP INTACT. TO PRIVATE CAR PER WHEELCHAIR
== END 2016-12-29 17:26 | disposition home or self-care (01) | DRG 310 ==
LOC: D.ER 13:48 → OBSVTIME 18:07 → D.M2 18:07
PROVIDERS: Emergency Medicine; Family Medicine; ADMIT Internal Medicine Cardiovascular Disease
DX: I48.91 Unspecified atrial fibrillation (principal); R11.0 Nausea; G89.29 Other chronic pain; I25.10 Atherosclerotic heart disease of native coronary artery without angina pectoris; Z95.5 Presence of coronary angioplasty implant and graft; Z95.0 Presence of cardiac pacemaker; I10 Essential (primary) hypertension; M25.512 Pain in left shoulder; G62.9 Polyneuropathy, unspecified; F40.240 Claustrophobia; M48.02 Spinal stenosis, cervical region

== ENCOUNTER 2016-12-30 11:55 | Emergency (ER) | payer MEDICARE ==
[2016-12-25 10:35] VITALS: BMI 42.8
[2016-12-30 12:50] LABS: BASOPHILS 0.6 % (0.0-2.0); EOSINOPHILS 1.3 % (0-7); HEMATOCRIT 43.1 % (42.0-54.0); HEMOGLOBIN 14.7 g/dL (13.5-17.5); IMMATURE GRANULOCYTES 3.9 % (0-5); LYMPHOCYTES 18.4 % (15-50); MCH 33.6 pg (26.0-34.0); MCHC 34.1 g/dL (31.0-37.0); MCV 98.4 fL (80.0-100.0); MEAN PLATELET VOLUME 11.4 fL (7.4-10.4); MONOCYTES 8.3 % (2-11); NEUTROPHILS 67.5 % (40-80); RBC 4.38 10x6/uL (4.20-6.10); RDW 13.5 % (11.5-14.5); WBC 12.7 10x3/uL (4.8-10.8)
[2016-12-30 13:17] LABS: PLATELET COUNT 137 10x3/uL (130-400)
[2016-12-30 13:31] LABS: ALBUMIN 2.8 g/dL (3.4-5.0); ALKALINE PHOSPHATASE 174 U/L (46-116); ALT (SGPT) 29 U/L (10-68); CALC OSMOLALITY 295 mosm/kg (275-300); CALCIUM 8.4 mg/dL (8.5-10.1); CARBON DIOXIDE 24.3 mmol/L (21.0-32.0); CHLORIDE - SERUM 106 mmol/L (98-107); CREATININE - SERUM 1.2 mg/dL (0.6-1.3); GLUCOSE 257 mg/dL (74-106); POTASSIUM - SERUM 4.3 mmol/L (3.5-5.1); PROTEIN - SERUM 6.1 g/dL (6.4-8.2); SODIUM 141 mmol/L (136-145); UREA NITROGEN 29 mg/dL (7-18); eGFR NON AFRICAN AMERICAN 64 mL/min (90-120)
[2016-12-30 13:46] LABS: CHOL - HDL RATIO 3.1 ratio (2.3-4.9); CHOLESTEROL, TOTAL 125 mg/dL (0-200); CKMB 2.6 U/L (0.0-3.6); CREATINE KINASE 40 UL (21-232); HDL CHOLESTEROL 41 mg/dL (32-96); LDL CHOLESTEROL 30 mg/dL (0-100); LDL-HDL RATIO 0.7 ratio (1.5-3.5); MAGNESIUM - SERUM 1.8 mg/dL (1.8-2.4); PRO BNP 1060 pg/mL (0-125); THYROID STIMULATING HORMONE 2.92 uIU/mL (0.36-3.74); TRIGLYCERIDE 273 mg/dL (30-200); TROPONIN-I 0.028 ng/mL (0.000-0.060)
== END 2016-12-30 15:15 | disposition home or self-care (01) ==
LOC: D.ER 11:55
PROVIDERS: Emergency Medicine
DX: I48.91 Unspecified atrial fibrillation (principal); R07.9 Chest pain, unspecified; E66.09 Other obesity due to excess calories; Z95.0 Presence of cardiac pacemaker; I50.9 Heart failure, unspecified; J44.9 Chronic obstructive pulmonary disease, unspecified; E11.9 Type 2 diabetes mellitus without complications; G47.30 Sleep apnea, unspecified

== ENCOUNTER 2017-01-07 08:22 | Emergency (ER) | payer MEDICARE ==
[2016-12-25 10:35] VITALS: BMI 42.8
[2017-01-07 09:04] LABS: BASOPHILS 0.4 % (0-2); EOSINOPHILS 1.2 % (0-7); HEMATOCRIT 41.2 % (42.0-54.0); HEMOGLOBIN 13.8 g/dL (13.5-17.5); IMMATURE GRANULOCYTES 0.9 % (0-5); LYMPHOCYTES 17.6 % (15-50); MCH 32.3 pg (26.0-34.0); MCHC 33.5 g/dL (31.0-37.0); MCV 96.5 fL (80.0-100.0); MEAN PLATELET VOLUME 10.1 fL (7.4-10.4); MONOCYTES 8.5 % (2-11); NEUTROPHILS 71.4 % (40-80); RBC 4.27 10x6/uL (4.20-6.10); RDW 12.9 % (11.5-14.5); WBC 10.7 10x3/uL (4.8-10.8)
[2017-01-07 09:06] LABS: PLATELET COUNT 205 10x3/uL (130-400)
[2017-01-07 09:20] LABS: ALBUMIN 3.1 g/dL (3.4-5.0); ALKALINE PHOSPHATASE 179 U/L (46-116); ALT (SGPT) 87 U/L (10-68); CALC OSMOLALITY 282 mosm/kg (275-300); CALCIUM 8.2 mg/dL (8.5-10.1); CARBON DIOXIDE 22.4 mmol/L (21.0-32.0); CHLORIDE - SERUM 106 mmol/L (98-107); CREATINE KINASE 67 UL (21-232); POTASSIUM - SERUM 4.4 mmol/L (3.5-5.1); PROTEIN - SERUM 6.7 g/dL (6.4-8.2); SODIUM 140 mmol/L (136-145); UREA NITROGEN 21 mg/dL (7-18); eGFR NON AFRICAN AMERICAN 78 mL/min (90-120)
[2017-01-07 09:33] LABS: GLUCOSE 121 mg/dL (74-106)
== END 2017-01-07 10:31 | disposition home or self-care (01) ==
LOC: D.ER 08:22
PROVIDERS: Emergency Medicine
DX: I48.2 Chronic atrial fibrillation (principal); Z95.0 Presence of cardiac pacemaker; I50.9 Heart failure, unspecified; J44.9 Chronic obstructive pulmonary disease, unspecified; E11.9 Type 2 diabetes mellitus without complications; E66.09 Other obesity due to excess calories

== ENCOUNTER 2017-01-10 04:08 | Emergency (ER) | payer MEDICARE ==
[2016-12-25 10:35] VITALS: BMI 42.8
== END 2017-01-10 04:35 | disposition left against medical advice (07) ==
LOC: D.ER 04:08
DX: I10 Essential (primary) hypertension (principal)

== ENCOUNTER 2017-01-14 07:46 | Emergency (ER) | payer MEDICARE ==
[2016-12-25 10:35] VITALS: BMI 42.8
--- NOTE | ~2017-01-14 | CN ---
PATIENT NAME:ISAEL KENDALL MEDICAL RECORD: [id number] : 47 LOCATION:[facility] ADMIT DATE: ACCOUNT: [id number] CONSULTING PHYSICIAN: JOSHUA SANCHEZ MD REFERRING PHYSICIAN: TONYA COPELAND MD DATE OF CONSULTATION: 01/14/2017 ADMITTING DIAGNOSES: 1. Angina. 2. Coronary artery disease. 3. Recent percutaneous transluminal coronary angioplasty stent of the left circumflex with concomitant disease of the left anterior descending. 4. Atrial fibrillation. 5. Hypertension. 6. Osteoarthritis with chronic pain. 7. Gastroesophageal reflux disease. HISTORY OF PRESENT ILLNESS: Mr. Kendall has had a recurrent presentation with continued angina and shortness of breath. He presented to Dr. Jason, who saw him initially, did PTCA stent of the left circumflex. I reviewed the cath film and it appears that the proximal LAD as well has a significant stenosis. PHYSICAL EXAMINATION: GENERAL APPEARANCE: Well-nourished, well-developed, appears stated age. Level of distress, comfortable. PSYCHIATRIC: Mental status, alert, normal affect. Orientation, oriented to time, place and person. EYES: Lids and conjunctiva, noninjected. No discharge, no pallor. ENT: Lips, teeth, gums, normal dentition. Oropharynx, no cyanosis, no pallor. NECK: Carotid arteries, bilateral normal upstroke, no bruits, no thrills. JUGULAR VEINS: No jugular venous pressure or distention. CERVICAL LYMPH NODES: Nontender, nonenlarged. THYROID: Not enlarged. Nontender. No nodules. LUNGS: Respiratory effort, unlabored. CHEST: Normal curvature. No thoracic deformity. No chest wall tenderness. Percussion, resonant. Auscultation, clear. No wheezes, no rales, no rhonchi. CARDIOVASCULAR: Precordial exam, nondisplaced. No heaves or pericardial thrills. Rate and rhythm, regular. Heart sounds, normal S1, normal S2. No S3, no gallop, no rub. Systolic murmur, not heard. Diastolic murmur, not heard. EXTREMITIES: No cyanosis, no edema. Peripheral pulses, full and equal in all extremities, except as noted. No bruits appreciated. ABDOMEN: Soft, nondistended. Normal aorta. No bruit. Nontender. No masses. Liver, nontender, no hepatomegaly. Spleen, nontender, no splenomegaly. MUSCULOSKELETAL: No joint tenderness. No joint swelling. No erythema. NEUROLOGICAL: Normal gait, normal strength, normal tone. SKIN: Warm and dry. REVIEW OF SYSTEMS: The patient reports easy bruising but reports no swollen glands. The patient reports no fever, no night sweats, no significant weight gain, no significant weight loss. No significant exercise tolerance. The patient reports no dry eyes, no irritation, no vision change. Patient reports no difficulty hearing and no ear pain. Patient reports no frequent nose bleeds or nose and sinus problems. Patient reports on arm pain on exertion. No shortness of breath while lying down. No history of heart murmur. Patient reports no cough, no wheezing or coughing up blood. Patient reports no CONSULT REPORT [id number] ISAEL KENDALL RAY abdominal pain, no vomiting. Normal appetite. No diarrhea and not vomiting blood. No nausea and no constipation. Patient reports no incontinence. No difficulty urinating. No hematuria. No increased frequency. Patient reports no muscle aches. No weakness, no arthralgias, no back pain. No swelling of the extremities. Patient reports no abnormal mole, no jaundice, no rashes. Reports no loss of consciousness. No weakness and no numbness. No seizures, dizziness, or headaches. The patient reports no depression, no sleep disturbance, feeling safe in a relationship and no alcohol abuse. Patient reports on fatigue. Reports no runny nose or sinus pressure. No itching, no hives, and no frequent sneezing. PLAN: At this time, we will proceed with intravascular ultrasound and transcatheter revascularization of the LAD if warranted. TRANSINT:[id number] Voice Confirmation ID: [id number] DOCUMENT ID: [id number] JOSHUA SANCHEZ MD CC: [id number] DICTATION DATE: 01/14/17904 PEOPLESOFT: 01/14/17 1150 [facility] [address] [place] [address]
[2017-01-14 08:25] LABS: BASOPHILS 0.3 % (0-2); EOSINOPHILS 2.2 % (0-7); HEMATOCRIT 37.5 % (42.0-54.0); HEMOGLOBIN 12.2 g/dL (13.5-17.5); IMMATURE GRANULOCYTES 0.5 % (0-5); LYMPHOCYTES 12.4 % (15-50); MCH 32.2 pg (26.0-34.0); MCHC 32.5 g/dL (31.0-37.0); MCV 98.9 fL (80.0-100.0); MONOCYTES 9.4 % (2-11); NEUTROPHILS 75.2 % (40-80); PLATELET COUNT 195 10x3/uL (130-400); RBC 3.79 10x6/uL (4.20-6.10); RDW 13.4 % (11.5-14.5); WBC 9.6 10x3/uL (4.8-10.8)
[2017-01-14 08:46] LABS: ANION GAP 8.8 mmol/L (8-16); BILIRUBIN - TOTAL 0.42 mg/dL (0.2-1.3); CALCIUM 8.7 mg/dL (8.5-10.1); CARBON DIOXIDE 30.1 mmol/L (21.0-32.0); CREATININE - SERUM 1.2 mg/dL (0.6-1.3); POTASSIUM - SERUM 3.9 mmol/L (3.5-5.1)
[2017-01-14 08:54] LABS: TROPONIN-I 0.02 ng/mL (0.000-0.060)
== END 2017-01-14 10:50 | disposition left against medical advice (07) ==
LOC: D.ER 07:46
PROVIDERS: Emergency Medicine
DX: I20.0 Unstable angina (principal); I50.9 Heart failure, unspecified; J44.9 Chronic obstructive pulmonary disease, unspecified; E11.9 Type 2 diabetes mellitus without complications; E66.09 Other obesity due to excess calories; I48.91 Unspecified atrial fibrillation

== ENCOUNTER 2017-01-16 07:13 | Outpatient (CLI) | payer MEDICARE ==
[2016-12-25 10:35] VITALS: BMI 42.8
--- NOTE | ~2017-01-16 | HEMODYNAMI ---
PATIENT:ISAEL KENDALL MEDICAL RECORD: [id number] : 47 LOCATION:DTeressaCAT ADMISSION DATE: 01/16/17 Generatedon:01/16/201713:58 Patient name: ISAEL KENDALL Patient #: [id number] SSN: : 1945 Date of study: 01/16/2017 Page: Of Hemodynamic Procedure Report Patient Data Patient Demographics Procedure consent was obtained First Name: ISAEL Gender: Male Last Name: FAIZA : 1945 Middle Initial: RAY Age: 71 year(s) Patient #: [id number] Race: Unknown Additional ID: [id number] Contact details Address: [address] [address] State: [place] City: [place] Zip code: [address] Past Medical History Allergies Allergen Reaction Date Comments Reported Morphine 12/22/2016 Admission Admission Data Admission Date: 01/16/2017 Admission Time: 7:13 Procedure Procedure Types Cath Procedure Diagnostic Procedure LHC LHC w/Coronaries Miscellaneous Procedures Moderate Sedation up to 15 minutes Procedure Description Procedure Date Procedure Date: 01/16/2017 Procedure Start Time: 12:50 Procedure End Time: 13:56 Procedure Staff Name Function Alex Moreno MD Performing Physician Tameka Mohamud RN Nurse Delgado Fernandez RT Monitor Kingston Henning RT Scrub Procedure Data Cath Procedure Fluoroscopy Diagnostic fluoroscopy Total fluoroscopy Time: 1.1 time: 1.1 min min Diagnostic fluoroscopy Total fluoroscopy dose: 580 dose: 580 mGy mGy Contrast Material Contrast Material Type Amount (ml) Isovue 300 67 Entry Location Entry Primary Successful Side Size Upsize Upsize Entry Closure Succes sful Closure Location (Fr) 1 (Fr) 2 (Fr) Remarks Device Remarks Femoral Right 5 Fr Exoseal artery Estimated blood loss: 10 ml Diagnostic catheters Device Type Used For End Catheter Placement Cordis 5Fr JL 4.0 Procedure Catheter (MP) Cordis 5Fr 3DRC Catheter Procedure (MP) Cordis 5Fr Pigtail Procedure Catheter (MP) Procedure Complications No complications Procedure Medications Medication Administration Route Dosage Oxygen NC 2 l/min Heparin Flush Bag added to field 2 bags (1000units/500ml NS) Lidocaine 2% added to field 20 Versed I.V. 1 mg Fentanyl I.V. 50 mcg Versed I.V. 0.5 mg Fentanyl I.V. 25 mcg Versed I.V. 0.5 mg Fentanyl I.V. 25 mcg unlisted medication unlisted medication unlisted medication Hemodynamics Rest Heart Rate: 66 (bpm) Pressure Samples Time Site Value (mmHg) Purpose Heart Use Rate(bpm) 12:57 LV 120/18,32 Snapshot 60 12:57 AO 110/72(86) Pullback 64 12:57 LV 129/20,43 Pullback 64 Gradients Valve Time Site 1 Site 2 Mean SEP/DFP Peak To Heart Use (mmHg) (sec/min) Peak Rate (mmHg) (bpm) Aortic 12:57 LV AO 27 8 19 64 129/20,43 110/72(86) Calculations Valve P-P Mean Valve Index Valve Source Name Gradient Area Flow (cm2) Aortic 19 27 19 27 Snapshots Pre Cath Intra NCS Post Cath Vital Signs Time Heart Resp SPO2 etCO2 [id number] NIBP Rhythm Pain Sedation Rate (ipm) (%) (mmHg) (mmHg) (mmHg) Status Level (bpm) 12:40:02 57 16 96 0 0 107/62(80) NSR 0 (11) 10(A) , No pain 12:44:14 62 16 96 0 0 100/65(85) NSR 0 (11) 10(A) , No pain 12:48:22 63 16 97 0 0 95/61(77) NSR 0 (11) 10(A) , No pain 12:52:29 64 14 97 0 0 97/62(79) NSR 0 (11) 10(A) , No pain 12:56:41 69 17 95 0 0 99/57(84) NSR 0 (11) 9(A) , No pain 13:00:47 61 16 88 0 0 98/62(81) NSR 0 (11) 9(A) , No pain 13:04:57 67 18 96 0 0 92/60(75) NSR 0 (11) 9(A) , No pain 13:09:05 60 17 98 0 0 106/62(75) NSR 0 (11) 9(A) , No pain 13:13:50 62 16 98 0 0 103/63(90) NSR 0 (11) 9(A) , No pain 13:17:58 65 16 95 0 0 97/73(89) NSR 0 (11) 9(A) , No pain 13:22:05 73 16 96 0 0 106/67(83) NSR 0 (11) 9(A) , No pain 13:26:13 63 22 96 0 0 117/77(99) NSR 0 (11) 9(A) , No pain 13:30:25 69 16 96 0 0 99/66(85) NSR 0 (11) 9(A) , No pain 13:34:31 60 16 96 0 0 115/76(88) NSR 0 (11) 9(A) , No pain 13:38:47 60 16 97 0 0 109/62(89) NSR 0 (11) 9(A) , No pain 13:42:57 58 14 98 0 0 106/77(87) NSR 0 (11) 9(A) , No pain 13:47:15 55 16 97 0 0 81/54(68) NSR 0 (11) 9(A) , No pain 13:51:10 67 16 95 0 0 92/81(86) NSR 0 (11) 9(A) , No pain 13:56:12 75 10 96 0 0 125/78(91) NSR 0 (11) 9(A) , No pain Medications Time Medication Route Dose Verified Delivered Reason Notes Effectiveness by by 12:39:06 Oxygen NC 2 Alex Tameka Per l/min [facility] Brandon Mohamud RN physician 12:39:15 Heparin Flush added 2 Alex Alex used for Bag to bags [facility] procedure (1000units/500ml field MD FLANAGAN NS) 12:39:25 Lidocaine 2% added 20ml Alex Theodoreory used for to vial Tiffanie Tiffanie procedure field MD FLANAGAN 12:45:11 Versed I.V. 1 mg Alex Tameka for [facility] Brandon Mohamud RN sedation 12:45:18 Fentanyl I.V. 50 Alex Tameka for mcg [facility] Brandon Mohamud RN sedation 12:48:52 Versed I.V. 0.5 Alex Tameka for mg [facility] Brandon Mohamud RN sedation 12:48:59 Fentanyl I.V. 25 Alex Kimecca for mcg [facility] Brandon Mohamud RN sedation 12:54:37 Versed I.V. 0.5 [address] for mg [facility] Brandon Mohamud RN sedation 12:54:40 Fentanyl I.V. 25 Alex English for mcg [facility] Brandon Mohamdu RN sedation 13:16:44 pt note Alex English pt remains [facility] Brandon marques MD awakens easily to verbal stimulus. snoring respirations noted. no sx/s of distress or c\o pain. pt r groin site remains c\d\i, no bleeding or hematoma noted. vss. pt covered with warm blankets. 13:30:06 pt note Alex English pt remains [facility] Brandon marques MD responsive to verbal stimulation. even non laboured respirations noted, no sx/s of distress or c/o pain. pt r groin site remains c//i, no bleeding or hematoma noted. pt vss stable, pt remains coved with warm blankets. 13:45:28 pt note Alex English pt awake, [facility] Brandon Mohamud RN aaox4, MD denis no sx/s of distress or c/o pain. pt tolerating po fluids, water. pt r groin site remains c/d/i, no bleeding or hematoma noted. pt vss. pt covered with warm blankets. Procedure Log Time Note 12:00:07 Kingston Henning RT(R) sent for patient. Start room use. 12:07:00 Time tracking: Regular hours 12:07:04 Plan of Care:Hemodynamics will remain stable., Cardiac rhythm will remain stable., Comfort level will be maintained., Respiratory function will remain adequate., Patient/ family verbilizes understanding of procedure., Procedure tolerated without complication., Recovers from procedure without complications.. 12:25:51 Patient received from ED to CCL 1 Alert and oriented. Tansferred to table in Supine position. 12:25:52 Warm blankets applied, and martine hugger turned on for patient comfort. 12:25:53 Correct patient and procedure confirmed by team. 12:25:54 Signed procedure consent form obtained from patient. 12:25:56 ECG and BP/O2 sat monitors applied to patient. 12:38:54 Vital chart was started 12:39:06 Oxygen 2 l/min NC was administered by Tameka Mohamud RN; Per physician; 12:39:15 Heparin Flush Bag (1000units/500ml NS) 2 bags added to field was administered by Alex Moreno MD; used for procedure; 12:39:25 Lidocaine 2% 20ml vial added to field was administered by Alex Moreno MD; used for procedure; 12:41:30 Baseline sample Acquired. 12:41:36 Rhythm: atrial fibrillation 12:41:37 Full Disclosure recording started 12:41:44 H&P Date Dictated: 01/16/2017 ER History on chart.. 12:41:45 Pre-procedure instructions explained to patient. 12:41:46 Pre-op teaching completed and patient verbalized understanding. 12:41:47 Family in waiting room. 12:41:49 Patient NPO since Midnight. 12:41:53 Is the patient allergic to Iodine/contrast media? No. 12:42:02 Is patient on blood thinner?Yes 12:42:42 Patient diabetic? No. 12:42:46 Previous problem with sedation/anesthesia? No ? 12:42:48 Snore? Yes 12:43:42 Sleep apnea? Yes 12:43:44 Deviated septum? No 12:43:45 Opens mouth fully? Yes 12:43:45 Sticks out tongue? Yes 12:43:47 Airway obstruction? No ? 12:43:49 Dentures? No ? 12:44:11 Last dose of Brilinta and Eliquis is unknown. 12:44:16 Pre procedure: right dorsailis pedis pulse 1+ Palpable, but thready & weak; easily obliterated 12:44:19 Patient pain scale 0/10 ?. 12:44:29 IV patent on arrival in right forearm with 0.9% NaCl at [facility]. 12:44:32 Lab results completed and on chart. 12:44:37 Right groin area was prepped with chlora-prep and draped in sterile fashion 12:44:38 Alarms reviewed by R. N. 12:44:39 Sharps counted by scrub and verified by R.N. 12:44:40 --------ALL STOP TIME OUT------ 12:44:40 Final Timeout: patient, procedure, and site verified with staff and physician. All members of the team are in agreement. 12:44:42 Right groin site verified by team. 12:44:45 Physical assessment completed. ASA score P 2 - A patient with mild systemic disease as per Alex Moreno MD. 12:44:48 Sedation plan: IV Moderate Sedation Versed, Fentanyl 12:45:11 Versed 1 mg I.V. was administered by Tameka Mohamud RN; for sedation; 12:45:18 Fentanyl 50 mcg I.V. was administered by Tameka Mohamud RN; for sedation; 12:47:37 Use device set Femoral Dx 12:47:39 Tegaderm 4 x 4 opened to sterile field. 12:47:40 Acist Manifold opened to sterile field. 12:47:40 Acist Hand Control opened to sterile field. 12:47:42 Acist Syringe opened to sterile field. 12:47:42 Bag Decanter opened to sterile field. 12:47:42 Medline Cath Pack opened to sterile field. 12:47:43 Terumo 5Fr Stopover Sheath opened to sterile field. 12:47:43 St Severiano 260cm J .035 wire opened to sterile field. 12:47:44 Diagnostic Infinity 5Fr Multipack catheter opened to sterile field. 12:48:52 Versed 0.5 mg I.V. was administered by Tameka Mohamud RN; for sedation; 12:48:59 Fentanyl 25 mcg I.V. was administered by Tameka Mohamud RN; for sedation; 12:50:02 Procedure started. 12:50:06 Local anesthetic to right femoral artery with Lidocaine 2% by Alex Moreno MD.INITIAL ACCESS ONLY 12:51:10 A 5 Fr sheath was inserted into the Right Femoral artery 12:51:54 A Cordis 5Fr JL 4.0 Catheter (MP) was advanced over the wire and used for Procedure. 12:52:42 LCA angiography performed. 12:53:31 Catheter removed. 12:53:42 A Cordis 5Fr 3DRC Catheter (MP) was advanced over the wire and used for Procedure. 12:54:37 Versed 0.5 mg I.V. was administered by Tameka Mohamud RN; for sedation; 12:54:40 Fentanyl 25 mcg I.V. was administered by Tameka Mohamud RN; for sedation; 12:55:17 RCA angiography performed. 12:55:18 Catheter removed. 12:56:23 A Cordis 5Fr Pigtail Catheter (MP) was advanced over the wire and used for Procedure. 12:57:19 LV angiography performed. 12:57:21 LV gram done using HERNANDEZ 12:57:35 EF : 30 % 12:57:47 LV hemodynamics recorded. 12:57:51 Injector settings: Ml/sec: 10, Volume: 20, 12:58:00 Catheter removed. 12:58:08 Cordis 6Fr Exoseal opened to sterile field. 12:58:54 Sheath removed intact; hemostasis achieved with Exoseal to the Right Femoral artery. 12:58:57 Procedure ended.(Physican Out) 12:59:11 Fluoroscopy time 01.10 minutes. 12:59:15 Fluoroscopy dose: 580 mGy 12:59:15 Flurop Dose total: 580 12:59:19 Contrast amount:Isovue 300 67ml. 12:59:21 Sharps counted by scrub and verified by R.N. 12:59:31 Insertion/operative site no bleeding no hematoma. 12:59:34 Post-op/insertion site Right Femoral artery dressed using a 4 x 4 and Tegaderm. 12:59:35 Post Procedure Pulses reassessed and unchanged 12:59:38 Post-procedure physical assessment completed. ASA score P 2 - A patient with mild systemic disease as per Alex Moreno MD. 12:59:43 Post procedure rhythm: atrial fibrillation 12:59:46 Estimated blood loss: 10 ml 12:59:48 Post procedure instruction explained to patient.Patient verbalizes understanding. 12:59:49 Patient needs reinforcement of post procedure teaching. 12:59:57 Procedure Complication : No complications 13:00:30 Procedure and supply charges have been captured, reviewed, submitted and are correct. 13:16:12 Unable to transfer to [employer] at this time. Pt moved to [facility] for comfort. Monitor of pt ongoing. 13:16:44 pt note was administered by Tameka Mohamud RN; ; pt remains drowsy, awakens easily to verbal stimulus. snoring respirations noted. no sx/s of distress or c\o pain. pt r groin site remains c\d\i, no bleeding or hematoma noted. vss. pt covered with warm blankets. 13:30:06 pt note was administered by Tameka Mohamud RN; ; pt remains drowsy, responsive to verbal stimulation. even non laboured respirations noted, no sx/s of distress or c/o pain. pt r groin site remains c//i, no bleeding or hematoma noted. pt vss stable, pt remains coved with warm blankets. 13:45:28 pt note was administered by Tameka Mohamud RN; ; pt awake, aaox4, calm, no sx/s of distress or c/o pain. pt tolerating po fluids, water. pt r groin site remains c/d/i, no bleeding or hematoma noted. pt vss. pt covered with warm blankets. 13:55:57 Vital chart was stopped 13:55:58 See physician's report for complete and final results. 13:55:59 Report given to Pre/Post Procedure Room. 13:56:08 Patient transfered to Pre/Post Procedure Room with Stretcher. 13:56:18 Procedure ended. 13:56:18 Full Disclosure recording stopped 13:56:24 End room use (Document Last) Device Usage Item Name Manufacture Quantity Catalog Hospital Part Current Minimal Lo t# / Number Charge Number Stock Stock Serial# Code Tegaderm 4 3M 1 [id number] 104581 142551 5 x 4 Acist Acist 1 25928 842382 642230 276123 5 Manifold Medical Systems Inc Acist Hand Acist 1 46612 657316 126575 058443 5 Control Medical Systems Inc Acist Acist 1 70486 561338 054725 562116 20 Syringe Medical Systems Inc Bag Microtek 1 2002S 849358 54897 876460 5 Decanter [employer] Inc. Medline Cardinal 1 [id number] 623774 99646 600515 5 Cath Pack Health Terumo 5Fr Terumo 1 [id number] 505231 543078 166590 [address] Sever[address] St Severiano 1 489187 436455 550295 023678 30 260cm J .035 wire Diagnostic Cardinal 1 [id number] 527211 71081 621877 30 Keen IO 5Fr Multipack catheter Cordis 5Fr Cardinal 1 197053 5 JL 4.0 Health Catheter (MP) Cordis 5Fr Cardinal 1 603854 5 3DRC Health Catheter (MP) Cordis 5Fr Cardinal 1 683564 5 Pigtail Health Catheter (MP) Cordis 6Fr Cardinal 1 EX600 982935 949018 725870 10 [facility] Health Signature Audit [place] Stage Time Signature Unsigned Intra-Procedure 01/16/2017 Delgado Fernandez 1:58:11 PM RT(R) Signatures Monitor : Delgado Fernandez RT Signature : Date : Time : [id number] [place] [address]
[2017-01-16 07:55] LABS: BASOPHILS 0.7 % (0-2); EOSINOPHILS 2.4 % (0-7); HEMOGLOBIN 12.5 g/dL (13.5-17.5); IMMATURE GRANULOCYTES 0.6 % (0-5); MCH 32.4 pg (26.0-34.0); MCHC 32.9 g/dL (31.0-37.0); MCV 98.4 fL (80.0-100.0); MEAN PLATELET VOLUME 10.2 fL (7.4-10.4); MONOCYTES 12.9 % (2-11); NEUTROPHILS 58.4 % (40-80); PLATELET COUNT 227 10x3/uL (130-400); RBC 3.86 10x6/uL (4.20-6.10); RDW 13.2 % (11.5-14.5); WBC 8.5 10x3/uL (4.8-10.8)
[2017-01-16 08:16] LABS: ALKALINE PHOSPHATASE 163 U/L (46-116); ALT (SGPT) 25 U/L (10-68); BILIRUBIN - TOTAL 0.41 mg/dL (0.2-1.3); CALC OSMOLALITY 280 mosm/kg (275-300); CALCIUM 8.9 mg/dL (8.5-10.1); CARBON DIOXIDE 29.1 mmol/L (21.0-32.0); CHLORIDE - SERUM 103 mmol/L (98-107); GLUCOSE 123 mg/dL (74-106); POTASSIUM - SERUM 4.3 mmol/L (3.5-5.1); PROTEIN - SERUM 6.5 g/dL (6.4-8.2); SODIUM 139 mmol/L (136-145); UREA NITROGEN 17 mg/dL (7-18); eGFR NON AFRICAN AMERICAN 78 mL/min (90-120)
[2017-01-16 08:26] LABS: CREATINE KINASE 50 UL (21-232); PRO BNP 3179 pg/mL (0-125); TROPONIN-I 0.026 ng/mL (0.000-0.060)
--- NOTE | 2017-01-16 14:00 | NUR ---
VSS WITH R/GROIN CDI NO BLEEDING NO HEMATOMA NOTED. PATIENT RESTLESS COMPLAINS OF R/LEG BURNING ICE APPLIED. 1415 PATIENT YELLING LOUD WITH R/LEG BURNING AND STINGING. DR PIZANO AT BEDSIDE 4 MG MORPHINE GIVEN IV. 1425 PATIENT STILL YELLING LOUD AND TRYING TO GET UP R/GROIN CDI NO BLEEDING NO HEMATOMA NOTED. DR PIZANO STILL AT BEDSIDE HANG AT BEDSIDE. 1445 EMELA CREAM AND LYRICA GIVEN ORDERED
--- NOTE | 2017-01-16 14:48 | NUR ---
Received call that patient could not get home. He reports he has no family and he is no able to self pay for a taxi to get him home to [place]. CM spoke to administration and received approval to provide a taxi voucher. Ramesh took taxi voucher to Torie GALAVIZ for patient to get home. Patricia Davis RN, [facility], [place] [phone]
--- NOTE | 2017-01-16 14:57 | NUR ---
PATIENT REPOSITIONED FOR COMFORT TO LEFT SIDE WITH PILLOW TO SUPPORT STILL MOVING ABOUT IN BED INSTRUCTED PATIENT TO KEEP HEAD FLAT ON PILLOW WITH RLE STRAIGHT PATIENT WILL NOT OBEY INSTRUCTIONS VERY ANGRY AND LOUD
[2017-01-16] MEDS ORDERED: PLAVIX75 MG PO (15:00)
[2017-01-16] MEDS ORDERED: HYDROCODONE-APA1 TAB PO (15:01)
--- NOTE | 2017-01-16 15:05 | NUR ---
PATIENT RESTING QUIETLY WITH EYES CLOSED. VSS WITH 6 FR EXOSEAL R/GROIN CDI NO BLEEDING NO HEMATOMA NOTED.
--- NOTE | 2017-01-16 15:16 | NUR ---
R/GROIN CDI NO BLEEDING NO HEMATOMA NOTED VSS WITH PATIENT QUIET NO DISTRESS AT THIS TIME SANDWICH AND DRINK TO BEDSIDE
[2017-01-16] MEDS ORDERED: LYRICA50 MG PO (15:21)
--- NOTE | 2017-01-16 15:27 | NUR ---
PIV REMOVED WITH DRESSING APPLIED VSS 6 FR EXOSEAL R/GROIN CDI NO BLEEDING NO HEMATOMA NOTED. PATIENT UP TO GET DRESSED FOR DISCHARGE HOME WITH CHEST PAIN DENIED
--- NOTE | 2017-01-16 16:08 | NUR ---
VERBAL AND WRITTEN DISCHARGE INSTRUCTIONS GONE OVER. PATIENT HAS 3 SCRIPTS IN HAND. PLAVIX.NORCO,AND LYRICA LEFT VIA WC TO PARKING WHERE SISTER WAS TO DRIVE HOME CHEST PAIN DENIED
--- NOTE | 2017-01-18 10:14 | HP ---
PATIENT: ISAEL KENDALL MEDICAL RECORD: [id number] ACCOUNT: [id number] LOCATION:MARLON : 47 ADMISSION DATE: 01/16/17 HISTORY AND PHYSICAL EXAMINATION Interim Note Please consultation dictated on the by Dr. Pastrana. He presents today with recurrent chest pain and shortness of breath. He has not been taking his Brilinta or his other cardiomyopathic meds. He gets more short of breath. He has been able to take his pain medications. ECG without acute change. He has underlying atrial fibrillation. At this point in time, with his medical noncompliance, we will plan for intervention. He reports marked dyspnea with the Brilinta. We will switch him to Plavix. TRANSINT:[id number] Voice Confirmation ID: [id number] DOCUMENT ID: [id number] TEJAS PIZANO MD at 1014 CC: [id number] DICTATION DATE: 01/16/17 1239 HAMMER SMITH: 01/16/17 1616 DEP CLI 01/16/17 [id number] [place] [address]
--- NOTE | 2017-01-18 10:14 | OP ---
PATIENT NAME: ISAEL KENDALL MEDICAL RECORD: [id number] :[birth year] LOCATION:D.CAT ADMISSION DATE: SURGEON: TEJAS PIZANO MD DATE OF OPERATION: 01/16/2017 PROCEDURES: Left heart catheterization, selective coronary angiography, right femoral approach. CATHETERS: A 5-Liberian sheath, 5/4 left and right Rob, 5/4 pig. The procedure was well tolerated. The patient returned to the perales where sheath was removed. ExoSeal device placed. FINDINGS: Left ventriculography in the 30-degree HERNANDEZ view: Normal wall motion, normal systolic function. CORONARY ANATOMY: Left main: Left main is free of disease. LAD: LAD is free of disease in the diagonal system. CIRCUMFLEX: Area of previous stenting is widely patent. RIGHT CORONARY ARTERY: Widely patent, free of disease. IMPRESSION: Nonischemic cardiomyopathy with EF 30% and no evidence of obstructive coronary artery disease. Was switched to Brilinta and Plavix. Continue cardiomyopathic medications. Reiterated compliance with his medications in addition to just taking his opioids is very important. TRANSINT:[id number] Voice Confirmation ID: [id number] DOCUMENT ID: [id number] TEJAS PIZANO MD at 1014 CC: [id number] DICTATION DATE: 01/16/17 1327 TABLE GAMES DUAL RATE SUPERVISOR: 01/16/172117 DEP CLI 01/16/17 [facility] [address] [place] [address]
== END 2017-01-16 16:10 ==
LOC: D.ER 07:13 → D.CATH 07:13 → EDSTATUS 12:30 → D.CATH 16:10
PROVIDERS: Emergency Medicine
DX: I42.8 Other cardiomyopathies (principal); I48.91 Unspecified atrial fibrillation; Z91.14 Patient's other noncompliance with medication regimen; J44.9 Chronic obstructive pulmonary disease, unspecified; E11.9 Type 2 diabetes mellitus without complications; Z01.812 Encounter for preprocedural laboratory examination

== ENCOUNTER 2017-01-17 08:10 | Emergency (ER) | payer MEDICARE ==
[2016-12-25 10:35] VITALS: BMI 42.8
[~2017-01-17 08:10] MED LIST changes: +HYDROCODONE-APA1 TAB PO; +LYRICA50 MG PO; +PLAVIX75 MG PO
[2017-01-17 09:01] LABS: BASOPHILS 0.2 % (0-2); EOSINOPHILS 1.5 % (0-7); HEMATOCRIT 39.6 % (42.0-54.0); HEMOGLOBIN 13.3 g/dL (13.5-17.5); IMMATURE GRANULOCYTES 0.4 % (0-5); LYMPHOCYTES 11.8 % (15-50); MCH 32.7 pg (26.0-34.0); MCHC 33.6 g/dL (31.0-37.0); MCV 97.3 fL (80.0-100.0); MONOCYTES 9.8 % (2-11); NEUTROPHILS 76.3 % (40-80); PLATELET COUNT 252 10x3/uL (130-400); RBC 4.07 10x6/uL (4.20-6.10); WBC 10.1 10x3/uL (4.8-10.8)
[2017-01-17 09:11] LABS: ANION GAP 8.7 mmol/L (8-16); CARBON DIOXIDE 32.8 mmol/L (21.0-32.0); CREATININE - SERUM 1.1 mg/dL (0.6-1.3); POTASSIUM - SERUM 4.5 mmol/L (3.5-5.1)
== END 2017-01-17 09:38 | disposition home or self-care (01) ==
LOC: D.ER 08:10
PROVIDERS: Emergency Medicine
DX: J18.9 Pneumonia, unspecified organism (principal); I50.9 Heart failure, unspecified; I48.2 Chronic atrial fibrillation; J44.9 Chronic obstructive pulmonary disease, unspecified; E11.9 Type 2 diabetes mellitus without complications; E66.09 Other obesity due to excess calories

== ENCOUNTER 2017-02-01 14:21 | Emergency (ER) | payer MEDICARE ==
[2016-12-25 10:35] VITALS: BMI 42.8
[2017-02-01 15:46] LABS: ALBUMIN 3.3 g/dL (3.4-5.0); ALKALINE PHOSPHATASE 133 U/L (46-116); ALT (SGPT) 27 U/L (10-68); BILIRUBIN - TOTAL 0.49 mg/dL (0.2-1.3); CALC OSMOLALITY 282 mosm/kg (275-300); CALCIUM 8.3 mg/dL (8.5-10.1); CARBON DIOXIDE 26.1 mmol/L (21.0-32.0); CHLORIDE - SERUM 104 mmol/L (98-107); GLUCOSE 128 mg/dL (74-106); POTASSIUM - SERUM 4.1 mmol/L (3.5-5.1); PROTEIN - SERUM 6.7 g/dL (6.4-8.2); SODIUM 139 mmol/L (136-145); UREA NITROGEN 20 mg/dL (7-18); eGFR NON AFRICAN AMERICAN 78 mL/min (90-120)
[2017-02-01 15:57] LABS: CHOLESTEROL, TOTAL 163 mg/dL (0-200); CKMB 2.3 U/L (0.0-3.6); CREATINE KINASE 80 UL (21-232); HDL CHOLESTEROL 41 mg/dL (32-96); LDL CHOLESTEROL 90 mg/dL (0-100); LDL-HDL RATIO 2.2 ratio (1.5-3.5); TRIGLYCERIDE 164 mg/dL (30-200)
[2017-02-01 15:57] LABS: BASOPHILS 0.6 % (0-2); EOSINOPHILS 0.7 % (0-7); IMMATURE GRANULOCYTES 0.7 % (0-5); LYMPHOCYTES 17.7 % (15-50); MCH 32.3 pg (26.0-34.0); MCHC 33.3 g/dL (31.0-37.0); MCV 96.8 fL (80.0-100.0); MEAN PLATELET VOLUME 10.1 fL (7.4-10.4); MONOCYTES 9.8 % (2-11); NEUTROPHILS 70.5 % (40-80); PLATELET COUNT 218 10x3/uL (130-400); RBC 4.03 10x6/uL (4.20-6.10); RDW 13.2 % (11.5-14.5); WBC 9.7 10x3/uL (4.8-10.8)
[2017-02-01 16:02] LABS: TROPONIN-I < 0.017 ng/mL (0.000-0.060)
[2017-02-01 16:05] LABS: APTT 28.4 SECONDS (22.8-39.4); INR 1.02 (0.85-1.17); PROTIME 13.3 SECONDS (11.6-15.0)
== END 2017-02-01 17:00 | disposition home or self-care (01) ==
LOC: D.ER 14:21
PROVIDERS: Emergency Medicine; Nurse Practitioner Acute Care
DX: G62.9 Polyneuropathy, unspecified (principal); R11.0 Nausea; I50.9 Heart failure, unspecified; I48.2 Chronic atrial fibrillation; J44.9 Chronic obstructive pulmonary disease, unspecified; E11.9 Type 2 diabetes mellitus without complications

== ENCOUNTER 2017-02-24 06:19 | Observation (INO) | payer MEDICARE ==
[~2017-02-24] VITALS: Ht 172.7 cm; Wt 134.1 kg
[2017-02-24 07:00] LABS: BASOPHILS 0.5 % (0-2); EOSINOPHILS 1.6 % (0-7); HEMATOCRIT 39.7 % (42.0-54.0); HEMOGLOBIN 13.3 g/dL (13.5-17.5); IMMATURE GRANULOCYTES 0.5 % (0-5); LYMPHOCYTES 21.2 % (15-50); MCH 32.3 pg (26.0-34.0); MCHC 33.5 g/dL (31.0-37.0); MCV 96.4 fL (80.0-100.0); MEAN PLATELET VOLUME 9.9 fL (7.4-10.4); MONOCYTES 7.3 % (2-11); NEUTROPHILS 68.9 % (40-80); PLATELET COUNT 241 10x3/uL (130-400); RBC 4.12 10x6/uL (4.20-6.10); RDW 13.3 % (11.5-14.5); WBC 8.1 10x3/uL (4.8-10.8)
[2017-02-24 07:14] LABS: ALBUMIN 2.9 g/dL (3.4-5.0); ALKALINE PHOSPHATASE 136 U/L (46-116); ALT (SGPT) 21 U/L (10-68); CALC OSMOLALITY 287 mosm/kg (275-300); CALCIUM 8.8 mg/dL (8.5-10.1); CARBON DIOXIDE 26.6 mmol/L (21.0-32.0); CHLORIDE - SERUM 106 mmol/L (98-107); CREATININE - SERUM 1.4 mg/dL (0.6-1.3); GLUCOSE 162 mg/dL (74-106); PROTEIN - SERUM 6.7 g/dL (6.4-8.2); SODIUM 141 mmol/L (136-145); UREA NITROGEN 21 mg/dL (7-18); eGFR NON AFRICAN AMERICAN 53 mL/min (90-120)
[2017-02-24 07:25] LABS: CKMB 2.2 U/L (0.0-3.6); CREATINE KINASE 56 UL (21-232); PRO BNP 1052 pg/mL (0-125); TROPONIN-I 0.018 ng/mL (0.000-0.060)
--- NOTE | 2017-02-24 11:02 | NUR ---
RECIEVED FROM ER. AWAKE AND ALERT. WANTS HIS PAIN MEDS NOW. STATES HE HAS RAN OUT AND HAS NO MONEY TO BUY THEM. IV TO RIGHT HAND. TELEMERTY SHOWS CAF. WILL MONITOR
[2017-02-24 11:16] VITALS: BP 115/78; Ht 172.7 cm; Wt 134.1 kg
--- NOTE | 2017-02-24 11:44 | NUR ---
ASSESSMENT DONE. PT CO PAIN IN L ARM. HAS BEEN MEDICATED WITH PAIN MEDS. TRACE OF EDEMA NOTED. MONITOR SHOWS AF WITH OCC PVC @ RATE OF 79. PT HAS A PACEMAKER.
[2017-02-24 16:03] VITALS: BP 151/92
--- NOTE | 2017-02-24 18:47 | NUR ---
PT UP TO BATHROOM. DENIES ANY NEEDS. CALL LIGHT IN REACH WITH SR UP
--- NOTE | 2017-02-24 19:00 | NUR ---
INITIAL ROUNDS MADE. PT SITTING UP IN BED RESTING WELL WITH EYES CLOSED, AWAKENED EASILY WHEN NAME CALLED. DENIES NEEDS OR C/O AT THIS TIME. WILL CONT TO MONITOR.
[2017-02-24 20:00] VITALS: BP 132/95
[2017-02-25 01:17] VITALS: BP 158/93
[2017-02-25 08:00] VITALS: BP 189/131
--- NOTE | 2017-02-25 09:01 | NUR ---
ADMINISTERED AM MEDS, AND OXYCODONE 30MG FOR PAIN LEVEL OF 10/10. ALSO GAVE ATIVAN FOR ANXIETY. PT UP TO SIDE OF BED, DENIES ANY OTHER NEEDS AT THIS TIME. CALL LIGHT IN REACH, NAD NOTED, WILL CONTINUE TO MONITOR.
[2017-02-25] MEDS ORDERED: BETAPACE 120 M120 MG PO (09:39)
--- NOTE | 2017-02-25 10:00 | NUR ---
PROVIDED WRITTEN AND VERBAL DISCHARGE INSTRUCTIONS TO PT. PT VERBALIZED UNDERSTANDING REGARDING TEACHING, D/C LT HAND IV, TIP INTACT. SCRIPT FOR SATOLOL GIVEN. PT READY FOR WHEELCHAIR. 1008- PT LEFT UNIT VIA WHEELCHAIR, NAD NOTED.
--- NOTE | 2017-02-26 08:49 | DS ---
PATIENT:ISAEL KENDALL :[birth year] MEDICAL RECORD: [id number] DISCHARGE SUMMARY ADMISSION DATE: 02/24/17 DISCHARGE DATE: 02/25/17 DIAGNOSES: 1. Atrial fibrillation with rapid ventricular response. 2. Shortness of breath. 3. Morbid obesity. 4. Coronary artery disease. 5. Chest pain. 6. Medical noncompliance. 7. Chronic back and joint pain. 8. Sick sinus syndrome. 9. Status post pacemaker. 10. Previous percutaneous transluminal coronary angioplasty stent. HOSPITAL COURSE: This is a gentleman who presents with shortness of breath, chest pain and generalized pain. He has a history of coronary artery disease and underwent PTCA stent in December. He did not take any Plavix and came back in January. His stent was widely patent. He was encouraged to get the Plavix and take this. He supposedly did and likely the stent was a bare metal stent. He now comes back with shortness of breath and tachycardia. He was in atrial fibrillation with rapid ventricular response. His Cordarone was changed to sotalol 120 mg b.i.d. With this, he had heart rates in the 80s. He continued to have his chronic back pain; however, he is on multiple medications for this, this is not cardiac issues. His troponin was normal. He was discharged home with the discontinuation of the amiodarone. Continue the sotalol 120 mg b.i.d. He will follow up with Dr. Jason as previously scheduled. TRANSINT:[id number] Voice Confirmation ID: [id number] DOCUMENT ID: [id number] JOSHUA SANCHEZ MD at 0849 CC: [id number] DICTATION DATE: 02/25/17917 MANUAL MACHINIST: 02/26/17 0609 DIS IN 02/25/17 [facility] [address] [id number]
== END 2017-02-25 10:04 | disposition home or self-care (01) ==
LOC: D.ER 06:19 → D.M2 08:57 → OBSVTIME 08:57 → D.M2 08:57
PROVIDERS: Emergency Medicine; ADMIT Internal Medicine Interventional Cardiology
DX: I48.91 Unspecified atrial fibrillation (principal); E66.01 Morbid (severe) obesity due to excess calories; I25.10 Atherosclerotic heart disease of native coronary artery without angina pectoris; Z95.5 Presence of coronary angioplasty implant and graft; E11.40 Type 2 diabetes mellitus with diabetic neuropathy, unspecified; I10 Essential (primary) hypertension; E78.5 Hyperlipidemia, unspecified; Z91.19 Patient's noncompliance with other medical treatment and regimen; Z95.0 Presence of cardiac pacemaker

== ENCOUNTER → 2017-03-02 | Emergency (ER) | payer MEDICARE ==
[2017-02-24 11:16] VITALS: BMI 44.9
[~2017-03-02] MED LIST changes: +BETAPACE 120 M120 MG PO
== END ==
LOC: D.ER 18:22
DX: R07.9 Chest pain, unspecified (principal); I48.91 Unspecified atrial fibrillation

== ENCOUNTER 2017-03-03 09:11 | Emergency (ER) | payer MEDICARE ==
[2017-02-24 11:16] VITALS: BMI 44.9
[2017-03-03 10:16] LABS: BASOPHILS 0.6 % (0-2); EOSINOPHILS 1.4 % (0-7); HEMATOCRIT 41.5 % (42.0-54.0); HEMOGLOBIN 13.9 g/dL (13.5-17.5); IMMATURE GRANULOCYTES 0.5 % (0-5); LYMPHOCYTES 25.7 % (15-50); MCH 32.3 pg (26.0-34.0); MCHC 33.5 g/dL (31.0-37.0); MCV 96.5 fL (80.0-100.0); MEAN PLATELET VOLUME 10.5 fL (7.4-10.4); MONOCYTES 8.4 % (2-11); NEUTROPHILS 63.4 % (40-80); PLATELET COUNT 193 10x3/uL (130-400); RDW 13.2 % (11.5-14.5)
[2017-03-03 10:32] LABS: ALBUMIN 3.3 g/dL (3.4-5.0); ALKALINE PHOSPHATASE 159 U/L (46-116); ALT (SGPT) 25 U/L (10-68); BILIRUBIN - TOTAL 0.43 mg/dL (0.2-1.3); CALC OSMOLALITY 278 mosm/kg (275-300); CALCIUM 8.6 mg/dL (8.5-10.1); CARBON DIOXIDE 24.8 mmol/L (21.0-32.0); CHLORIDE - SERUM 105 mmol/L (98-107); CREATININE - SERUM 1.1 mg/dL (0.6-1.3); GLUCOSE 123 mg/dL (74-106); POTASSIUM - SERUM 4.4 mmol/L (3.5-5.1); PROTEIN - SERUM 7.2 g/dL (6.4-8.2); SODIUM 138 mmol/L (136-145); UREA NITROGEN 18 mg/dL (7-18); eGFR NON AFRICAN AMERICAN 70 mL/min (90-120)
[2017-03-03 10:43] LABS: CKMB 1.7 U/L (0.0-3.6); CREATINE KINASE 67 UL (21-232)
[2017-03-03 10:45] LABS: TROPONIN-I < 0.017 ng/mL (0.000-0.060)
== END 2017-03-03 10:57 | disposition home or self-care (01) ==
LOC: D.ER 09:11
PROVIDERS: Emergency Medicine
DX: Z91.19 Patient's noncompliance with other medical treatment and regimen (principal); G62.9 Polyneuropathy, unspecified; K52.1 Toxic gastroenteritis and colitis; T47.4X5A Adverse effect of other laxatives, initial encounter; Y92.89 Other specified places as the place of occurrence of the external cause; R07.89 Other chest pain; F11.20 Opioid dependence, uncomplicated; J44.9 Chronic obstructive pulmonary disease, unspecified; E11.9 Type 2 diabetes mellitus without complications; I48.91 Unspecified atrial fibrillation

== ENCOUNTER 2017-03-05 02:49 | Inpatient (IN) | payer MEDICARE ==
[~2017-03-05] VITALS: Ht 175.3 cm; Wt 131.5 kg
[2017-03-05 03:35] LABS: BASOPHILS 0.9 % (0-2); EOSINOPHILS 1.5 % (0-7); HEMATOCRIT 43.3 % (42.0-54.0); HEMOGLOBIN 14.3 g/dL (13.5-17.5); IMMATURE GRANULOCYTES 0.4 % (0-5); LYMPHOCYTES 26.4 % (15-50); MCH 32.1 pg (26.0-34.0); MCV 97.1 fL (80.0-100.0); MEAN PLATELET VOLUME 10.4 fL (7.4-10.4); NEUTROPHILS 59.8 % (40-80); PLATELET COUNT 204 10x3/uL (130-400); RBC 4.46 10x6/uL (4.20-6.10); RDW 13.3 % (11.5-14.5); WBC 9.3 10x3/uL (4.8-10.8)
[2017-03-05 03:51] LABS: ALBUMIN 3.3 g/dL (3.4-5.0); ALKALINE PHOSPHATASE 172 U/L (46-116); ALT (SGPT) 22 U/L (10-68); BILIRUBIN - TOTAL 0.39 mg/dL (0.2-1.3); CALC OSMOLALITY 286 mosm/kg (275-300); CALCIUM 8.7 mg/dL (8.5-10.1); CARBON DIOXIDE 26.4 mmol/L (21.0-32.0); CHLORIDE - SERUM 107 mmol/L (98-107); CREATININE - SERUM 1.2 mg/dL (0.6-1.3); GLUCOSE 114 mg/dL (74-106); PROTEIN - SERUM 7.2 g/dL (6.4-8.2); SODIUM 142 mmol/L (136-145); UREA NITROGEN 21 mg/dL (7-18); eGFR NON AFRICAN AMERICAN 64 mL/min (90-120)
[2017-03-05 03:55] LABS: CKMB 2.2 U/L (0.0-3.6); CREATINE KINASE 90 UL (21-232); PRO BNP 1082 pg/mL (0-125); TROPONIN-I 0.029 ng/mL (0.000-0.060)
[2017-03-05 08:10] VITALS: BP 140/88; BMI 42.9
--- NOTE | 2017-03-05 08:42 | NUR ---
PT AOX4 RESP EVEN AND NONLABORED PT C/O NAUSEA FROM DILAUDID IN ER. PAIN OF 8 IN LEFT RIBS AND BACK AT THIS TIME IV TO RIGHT FOREARM PATENT AND INTACT. SKIN PINK WARM AND DRY WITH GOOD TURGOR AND NO EDEMA <3 CAPILLARY REFILL BS+E5LUENR V/S WNL SRX2 BED AT LOWEST SETTING CALL LIGHT WITHIN REACH WILL CONTINUE TO MONITOR
[2017-03-05 09:36] VITALS: BP 140/88
[2017-03-05 11:49] VITALS: BP 129/93
[2017-03-05 12:01] LABS: CKMB 2.3 U/L (0.0-3.6); CREATINE KINASE 86 UL (21-232); TROPONIN-I 0.019 ng/mL (0.000-0.060)
[2017-03-05 15:54] VITALS: Ht 175.3 cm; Wt 131.5 kg
--- NOTE | 2017-03-05 17:22 | NUR ---
Patient Name: ISAEL KENDALL Admission Status: ER Accout number: [id number] Admission Date: 03-05-2017 : 1945 Admission Diagnosis: Attending: CARMELO Current LOS: 1 Anticipated DC Date: 03-07-2017 Planned Disposition: Fdc Facility Primary Insurance: MEDICARE A & B Discharge Planning Comments: CM MET WITH PATIENT AND SISTER (NOELLE) REGARDING D/C NEEDS AND PLANS. PATIENT STATED HE LIVES IN THE [place] AT HIS SISTERS HOME. THERE ARE 2 STEPS TO ENTER HOME AND 1 STAIRCASE W/RAILS TO [place]. PATIENT STATED HIS SISTER COOKS FOR HIM AND HELPS WITH HIS MEDS. PATIENT STATED HE IS INDEPENDENT WITH HIS CARE AND HAS A WHEELCHAIR AT HOME. PATIENT DOES NOT HAVE A PCP - SAW A [facility] DOC AT CLINIC YESTERDAY. PATIENT USES [facility] [address] PATIENT STATED HE IS VERY WEAK AND NEEDS TO GET STRONGER AND CAN BARELY WALK. PATIENT SIGNED THE [place] FORM WITH [facility] IF NEEDED. CM WILL CONTINUE TO FOLLOW PATIENT WITH D/C NEEDS AND PLANS. PCP NONE [facility] ([address]) [phone] ONELLE CABRERA (SISTER) [phone] Boiler Mechanic: Shanae Woodard Is the patient Alert and Oriented? Yes 0 * How many steps to enter\exit or inside your home? 1 STAIRCAS 0 * PCP NONE (PATIENT STATED HE IS [facility] AND EST. WITH DOCTOR AT CLINIC YESTERDAY) 0 * Pharmacy [facility] [address] 0 * Preadmission Environment Home with Family 0 * ADLs Partial Dependent 0 * Partial ADLs (Assistance needed) Medication Management 0 * Equipment Wheelchair 0 * List name and contact numbers for known caregivers / representatives who currently or will assist patient after discharge: NOELLE CABRERA (SISTER) [phone] 0 * Community resources currently utilized None 0 * Additional services required to return to the preadmission environment? Yes 0 * Can the patient safely return to the preadmission environment? Yes 0 * Has this patient been hospitalized within the prior 30 days at any hospital? No 0 Grand Total: 0
--- NOTE | 2017-03-05 17:43 | NUR ---
PT DEMEROL CABINET AND TRIM INSTALLER STARTED AT THIS TIME WITH A 25MG BOLUS DOSE GIVEN AT THIS TIME. PT B/P 173/103. AFTER 5 MIN PT RIGHT ARM AT AND AROUND THE IV SITE A RED RAISED BLOTCHY RASH FORMED. CABINET AND TRIM INSTALLER D/C AT THIS TIME. PAGED BY RAINE AT THIS TIME
--- NOTE | 2017-03-05 17:50 | NUR ---
RADHA HART FOR RETURNED PHONE CALL WITH ORDERS TO D/C DEMEROL SOAKER SODA WORKER, GIVE BENADRYL 25MG IV NOW AND CAN HAVE Q6H PRN.
[2017-03-05 18:40] LABS: CREATINE KINASE 78 UL (21-232)
[2017-03-05 20:54] VITALS: BP 123/75
--- NOTE | 2017-03-05 22:02 | NUR ---
PAGEBrianna GARCIA, MANAGER OF HEALTH FOR DR. BRIZUELA
--- NOTE | 2017-03-05 22:10 | NUR ---
SPOKE WITH RADHA ABOUT PATIENT'S PAIN IN HIS LEGS AND FEET. I WENT THROUGH THE MEDICATIONS THAT THE PATIENT IS CURRENTLY TAKING, HAS PREVIOUSLY TAKEN, AND THE PATIENT'S ALLERGY HISTORY. RADHA SAID THAT WE ARE GIVING THE PATIENT EVERYTHING THAT WE CAN GIVE HIM AT THIS TIME. ON A SEPARATE PHONE CALL RADHA ORDERED MIRALAX PER THE PATIENT'S REQUEST FOR HIS CONSTIPATION.
[2017-03-06] VITALS: BP 122/69
[2017-03-06 00:20] LABS: CKMB 1.9 U/L (0.0-3.6); CREATINE KINASE 67 UL (21-232)
[2017-03-06 04:00] VITALS: BP 113/79
[2017-03-06 06:08] LABS: BASOPHILS 0.5 % (0-2); HEMATOCRIT 43.3 % (42.0-54.0); HEMOGLOBIN 14.5 g/dL (13.5-17.5); IMMATURE GRANULOCYTES 0.4 % (0-5); LYMPHOCYTES 29.7 % (15-50); MCHC 33.5 g/dL (31.0-37.0); MCV 95.6 fL (80.0-100.0); MEAN PLATELET VOLUME 11.2 fL (7.4-10.4); MONOCYTES 10.3 % (2-11); NEUTROPHILS 57.1 % (40-80); PLATELET COUNT 197 10x3/uL (130-400); RBC 4.53 10x6/uL (4.20-6.10); RDW 13.2 % (11.5-14.5); WBC 9.2 10x3/uL (4.8-10.8)
[2017-03-06 06:26] LABS: ALBUMIN 3.2 g/dL (3.4-5.0); ANION GAP 19.8 mmol/L (8-16); BILIRUBIN - TOTAL 0.5 mg/dL (0.2-1.3); CALCIUM 8.2 mg/dL (8.5-10.1); CARBON DIOXIDE 24.5 mmol/L (21.0-32.0); CREATININE - SERUM 1.4 mg/dL (0.6-1.3); POTASSIUM - SERUM 4.3 mmol/L (3.5-5.1); PROTEIN - SERUM 6.8 g/dL (6.4-8.2); THYROID STIMULATING HORMONE 3.71 uIU/mL (0.36-3.74)
--- NOTE | 2017-03-06 07:20 | NUR ---
PATIENT RECEIVED IN LEFT LATERAL POSITION. NO SIGNS OF DISTRESS NOTED. SIDE RAILS UP X1. BED IN LOW POSITION. CALL LIGHT IN REACH.
--- NOTE | 2017-03-06 08:09 | NUR ---
PATIENT SITTING UP ON SIDE OF BED ALERT AND EATING BREAKFAST. TOLERATING WELL. SCHEDULED MEDICATION ADMINISTERED. BED IN LOW POSITION. CALL LIGHT IN REACH. DENIES NEEDS.
[2017-03-06 08:56] VITALS: BP 93/63
--- NOTE | 2017-03-06 10:05 | NUR ---
PATIENT IN LEFT LATERAL POSITION RESTING WITH EYES CLOSED. RESPIRATIONS EVEN AND UNLABORED. SIDE RAILS UP X1. BED IN LOW POSITION. CALL LIGHT IN REACH.
[2017-03-06 12:36] VITALS: BP 92/52
--- NOTE | 2017-03-06 13:10 | NUR ---
PATIENT SUPINE IN BED REQUESTING ZOFRAN. INFORMED PATIENT IT WAS TOO SOON FOR ANOTHER DOSE, BUT IT WOULD BE ADMINISTERED SOON IT WAS TIME. STATES UNDERSTANDING. DENIES FURTHER NEEDS. BED IN LOW POSITION. CALL LIGHT IN REACH.
--- NOTE | 2017-03-06 14:32 | NUR ---
ZOFRAN ADMINISTERED PER PRN ORDER. DENIES FURTHER NEEDS. CALL LIGHT IN REACH. BED IN LOW POSITION.
[2017-03-06 16:15] VITALS: BP 117/78
--- NOTE | 2017-03-06 18:00 | NUR ---
PATIENT IN RIGHT LATERAL POSITION RESTING WITH EYES CLOSED. RESPIRATIONS EVEN AND UNLABORED. SIDE RAILS UP X2. BED IN LOW POSITION. CALL LIGHT IN REACH.
--- NOTE | 2017-03-06 20:50 | NUR ---
20G PIV PLACED IN THE UNDERSIDE OF THE RIGHT FOREARM WITH ONE STICK.
[2017-03-07] VITALS: BP 128/88
[2017-03-07 04:00] VITALS: BP 131/91
--- NOTE | 2017-03-07 05:09 | NUR ---
PATIENT C/O CONSTIPATION. EXPLAINED TO PATIENT THAT HE RECEIVES MIRALAX AND METAMUCIL AT 0900. GAVE PATIENT PRUNE JUICE. PATIENT ALSO C/O PAIN. OXY GIVEN PER ORDER. NO OTHER NEEDS AT THIS TIME.
--- NOTE | 2017-03-07 05:20 | NUR ---
PATIENT REQUESTED THE DOCTOR TO BE CALLED FOR ABDOMINAL PAIN AND CRAMPING WITH NO BM x5 DAY. DIRECTOR OF STRATEGY & MOBILE, REE, WAS CALLED AND SHE SAID NOT TO CALL THE DOCTOR. PRUNE JUICE AND PRUNE JUICE WITH SPRITE WAS GIVEN WARMED UP.
[2017-03-07 06:16] LABS: BASOPHILS 0.2 % (0-2); EOSINOPHILS 1.9 % (0-7); HEMATOCRIT 46.4 % (42.0-54.0); HEMOGLOBIN 15.7 g/dL (13.5-17.5); IMMATURE GRANULOCYTES 0.4 % (0-5); LYMPHOCYTES 21.3 % (15-50); MCH 32.5 pg (26.0-34.0); MCHC 33.8 g/dL (31.0-37.0); MCV 96.1 fL (80.0-100.0); MEAN PLATELET VOLUME 10.8 fL (7.4-10.4); MONOCYTES 11.3 % (2-11); NEUTROPHILS 64.9 % (40-80); RBC 4.83 10x6/uL (4.20-6.10); RDW 12.8 % (11.5-14.5)
[2017-03-07 06:18] LABS: PLATELET COUNT 243 10x3/uL (130-400); WBC 13.1 10x3/uL (4.8-10.8)
[2017-03-07 06:42] LABS: ALBUMIN 3.4 g/dL (3.4-5.0); ANION GAP 12.2 mmol/L (8-16); BILIRUBIN - TOTAL 0.85 mg/dL (0.2-1.3); CALCIUM 8.8 mg/dL (8.5-10.1); CARBON DIOXIDE 30.3 mmol/L (21.0-32.0); CREATININE - SERUM 1.5 mg/dL (0.6-1.3); POTASSIUM - SERUM 3.5 mmol/L (3.5-5.1); PROTEIN - SERUM 7.7 g/dL (6.4-8.2)
--- NOTE | 2017-03-07 07:30 | NUR ---
PATIENT RECEIVED IN LEFT LATERAL POSITION RESTING QUIETLY. RESPIRATIONS EVEN AND UNLABORED. DENIES NEEDS. SIDE RAILS UP X2. BED IN LOW POSITION. CALL LIGHT IN REACH.
--- NOTE | 2017-03-07 09:20 | NUR ---
PATIENT SITTING UP ON SIDE OF BED ALERT. NO SIGNS OF DISTRESS NOTED. SCHEDULED MEDICATION ADMINISTERED. DENIES NEEDS. BED IN LOW POSITION. CALL LIGHT IN REACH.
[2017-03-07 09:48] VITALS: BP 108/61
--- NOTE | 2017-03-07 11:55 | NUR ---
PATIENT ALERT IN BED. NO SIGNS OF DISTRESS NOTED. SCHEDULED MEDICATION ADMINISTERED. DENIES NEEDS. SIDE RAILS UP X2. BED IN LOW POSITION. CALL LIGHT IN REACH.
[2017-03-07 13:02] VITALS: BP 144/71
--- NOTE | 2017-03-07 16:00 | NUR ---
PATIENT ALERT IN BED TALKING ON PHONE. NO SIGNS OF DISTRESS NOTED. DENIES NEEDS. SIDE RAILS UP X2. BED IN LOW POSITION. CALL LIGHT IN REACH.
[2017-03-07 16:02] VITALS: BP 144/70
--- NOTE | 2017-03-07 18:15 | NUR ---
PATIENT IN LOW PAYNE POSITION RESTING WITH EYES CLOSED. RESPIRATIONS EVEN AND UNLABORED. BED IN LOW POSITION. CALL LIGHT IN REACH.
[2017-03-07 23:14] VITALS: BP 125/74
--- NOTE | 2017-03-08 04:19 | NUR ---
PT IS ASLEEP WITH EASY RESPIRATIONS AND NO DISTRESS. HE HAS A FAN BLOWING ON HIM AND HIS URINAL IS AT THE BEDSIDE. THE BED IS LOW, RAILS UP X'S 2 WITH THE CALL LIGHT AT [facility]
[2017-03-08 05:06] VITALS: BP 104/82
[2017-03-08 05:33] LABS: BASOPHILS 0.5 % (0-2); EOSINOPHILS 2.7 % (0-7); HEMATOCRIT 42.8 % (42.0-54.0); HEMOGLOBIN 14.4 g/dL (13.5-17.5); IMMATURE GRANULOCYTES 0.4 % (0-5); MCH 32.4 pg (26.0-34.0); MCHC 33.6 g/dL (31.0-37.0); MCV 96.4 fL (80.0-100.0); MEAN PLATELET VOLUME 10.5 fL (7.4-10.4); MONOCYTES 12.1 % (2-11); NEUTROPHILS 56.3 % (40-80); PLATELET COUNT 219 10x3/uL (130-400); RBC 4.44 10x6/uL (4.20-6.10); RDW 12.9 % (11.5-14.5)
[2017-03-08 05:34] LABS: WBC 8.6 10x3/uL (4.8-10.8)
[2017-03-08 05:52] LABS: ALBUMIN 3.1 g/dL (3.4-5.0); ANION GAP 10.4 mmol/L (8-16); BILIRUBIN - TOTAL 0.4 mg/dL (0.2-1.3); CALCIUM 8.4 mg/dL (8.5-10.1); CARBON DIOXIDE 31.1 mmol/L (21.0-32.0); CREATININE - SERUM 1.2 mg/dL (0.6-1.3); POTASSIUM - SERUM 3.5 mmol/L (3.5-5.1); PROTEIN - SERUM 6.9 g/dL (6.4-8.2)
--- NOTE | 2017-03-08 07:20 | NUR ---
PATIENT RECEIVED IN LEFT LATERAL POSITION ALERT AND RESTING QUIETLY. RESPIRATIONS EVEN AND UNLABORED. SIDE RAILS UP X1. BED IN LOW POSITION. CALL LIGHT IN REACH.
--- NOTE | 2017-03-08 09:10 | NUR ---
PATIENT IN BED RESTING QUIETLY. NO SIGNS OF DISTRESS NOTED. SCHEDULED MEDICATION ADMINISTERED. NO NEEDS VOICED. SIDE RAILS UP X2. BED IN LOW POSITION. CALL LIGHT IN REACH.
[2017-03-08 09:11] VITALS: BP 102/65
--- NOTE | 2017-03-08 11:45 | NUR ---
C/O PAIN 04/23. OXY IR ADMINISTERED PER PRN ORDER. NO FURTHER NEEDS VOICED. SIDE RAILS UP X2. BED IN LOW POSITION. CALL LIGHT IN REACH.
[2017-03-08 12:20] VITALS: BP 121/82
--- NOTE | 2017-03-08 15:30 | NUR ---
PATIENT ALERT IN LEFT LATERAL POSITION WATCHING TV. NO SIGNS OF DISTRESS NOTED. SCHEDULED MEDICATION ADMINISTERED. DENIES NEEDS. BED IN LOW POSITION. CALL LIGHT IN REACH.
[2017-03-08 16:23] VITALS: BP 129/82
--- NOTE | 2017-03-08 17:50 | NUR ---
ALERT IN LEFT LATERAL POSITION. C/O PAIN 04/23. OXY IR ADMINISTERED PEP PRN ORDER. NO FURTHER NEEDS VOICED. SIDE RAILS UP X1. BED IN LOW POSITION. CALL LIGHT IN REACH.
[2017-03-08 19:00] VITALS: BP 154/68
--- NOTE | 2017-03-08 19:16 | NUR ---
PATIENT C/O ABDOMINAL CRAMPS. WAS REPORTED THAT HE HAD 2 DINNER TRAYS. 2 PRUNE JUICES AND A LEMON [place] SOFT DRINK HEATED UP GIVEN.
--- NOTE | 2017-03-08 22:25 | NUR ---
LYING IN BED WATCHING TV, DENIES NEEDS, NO DISTRESS NOTED, SR'S UP, CL IN REACH
[2017-03-09 04:00] VITALS: BP 142/92
--- NOTE | 2017-03-09 04:39 | NUR ---
PATIENT WALKED OUT OF HIS ROOM AND DEMANDED MEDICATIONS FOR HIS ABDOMINAL CRAMPS IN A LOUD TONE. HE WAS INFORMED THAT THE ERP IMPLEMENTATION CONSULTANT WAS NOTIFIED ALREADY AND HE DIDN'T HAVE ANY PAIN MEDICATIONS AVALIBLE UNTIL 0600 THIS MORNING.
[2017-03-09 06:39] LABS: BASOPHILS 0.4 % (0-2); EOSINOPHILS 2.3 % (0-7); HEMOGLOBIN 14.4 g/dL (13.5-17.5); IMMATURE GRANULOCYTES 0.4 % (0-5); LYMPHOCYTES 23.3 % (15-50); MCH 32.4 pg (26.0-34.0); MCHC 33.5 g/dL (31.0-37.0); MCV 96.6 fL (80.0-100.0); MEAN PLATELET VOLUME 10.6 fL (7.4-10.4); NEUTROPHILS 63.6 % (40-80); PLATELET COUNT 205 10x3/uL (130-400); RBC 4.45 10x6/uL (4.20-6.10); WBC 8.4 10x3/uL (4.8-10.8)
[2017-03-09 07:03] LABS: ALBUMIN 3.2 g/dL (3.4-5.0); ANION GAP 10.6 mmol/L (8-16); BILIRUBIN - TOTAL 0.5 mg/dL (0.2-1.3); CALCIUM 8.6 mg/dL (8.5-10.1); CARBON DIOXIDE 30.2 mmol/L (21.0-32.0); CREATININE - SERUM 1.1 mg/dL (0.6-1.3); POTASSIUM - SERUM 3.8 mmol/L (3.5-5.1); PROTEIN - SERUM 7.2 g/dL (6.4-8.2)
[2017-03-09 08:31] VITALS: BP 146/77
--- NOTE | 2017-03-09 09:15 | NUR ---
SCHEDULED MEDICATIONS ADMINISTERED AT THIS TIME AND ASSESSMENT PERFORMED PER FLOWSHEET. IV TO RIGHT FOREARM PATENT AND SALINE LOCKED. ALERT AND ORIENTED X4 WITH RESPIRATIONS EVEN AND NON LABORED. CALL LIGHT IN REACH, WILL CONTINUE WITH PLAN OF CARE.
--- NOTE | 2017-03-09 11:00 | NUR ---
PRN ZOFRAN ADMINISTERED FOR PT'S COMPLAINTS OF NAUSEA WITHOUT EMESIS. HE BELIEVES IT IS THE METAMUCIL WAFER THAT IS CAUSING HIS NAUSEA. EXPLAINED TO PT THAT IF HE SUSPECTED THAT TO BE THE CAUSE THAT HE COULD REFUSE THAT MEDICATION OR SPEAK WITH THE DR ABOUT CHANGING THAT MEDICATION WHEN HE ROUNDED. PT VERBALIZED UNDERSTANDING. CALL LIGHT IN REACH, WILL CONTINUE WITH PLAN OF CARE.
--- NOTE | 2017-03-09 11:32 | NUR ---
ONE TIME ORDER FOR ZOFRAN 8MG ADMINISTERED PER ORDER FROM TANNER RAMOS FOR NAUSEA AND EMESIS.
[2017-03-09 12:32] VITALS: BP 153/103
--- NOTE | 2017-03-09 15:02 | CN ---
PATIENT NAME:ISAEL KENDALL MEDICAL RECORD: [id number] : 47 LOCATION:D.[id number] ADMIT DATE: 03/05/17 ACCOUNT: [id number] CONSULTING PHYSICIAN: JOSHUA SANCHEZ MD REFERRING PHYSICIAN: JONI BRIZUELA MD DATE OF CONSULTATION: 03/05/2017 Cardiology Consultation DIAGNOSES: 1. Atrial fibrillation, chronic. 2. Coronary artery disease. 3. Recent percutaneous transluminal coronary angioplasty stent of the left circumflex. 4. Chronic pain syndrome. HISTORY OF PRESENT ILLNESS: This is a gentleman known to us, presented with anginal symptomatology, atrial fibrillation, seen by Dr. Mroeno, underwent successful PTCA stent of the left circumflex this late December. He was noncompliant with his Plavix, came back in January. He continued to have the atrial fibrillation with rapid ventricular response, underwent cardiac catheterization by Dr. Jason showing wide patency of the previously placed stent, was restarted on his Plavix. It is unknown again if he was compliant with his Plavix, but he came back with continued atrial fibrillation and rapid ventricular response. He was started on sotalol 120 mg b.i.d. in addition to his metoprolol. He had slowing of the rate below the 80 and 90 range and had resolution of all his symptomatology. He was not started on an antithrombotic secondary to frequent falls and the risk of bleeding. He was continued on his Plavix. Once again, noncompliance has been an issue. He states that he went to the [place] to get the [place]av[place] and sotalol, has not been on them for the past week after his last discharge[facility] found that he was in atrial fibrillation with rapid ventricular response, T-wave inversions in the lateral leads, told him to come immediately to hospital; however, this EKG is unchanged from his previous EKGs. PHYSICAL EXAMINATION: GENERAL APPEARANCE: Well-nourished, well-developed, appears stated age. Level of distress, comfortable. PSYCHIATRIC: Mental status, alert, normal affect. Orientation, oriented to time, place and person. EYES: Lids and conjunctiva, noninjected. No discharge, no pallor. ENT: Lips, teeth, gums, normal dentition. Oropharynx, no cyanosis, no pallor. NECK: Carotid arteries, bilateral normal upstroke, no bruits, no thrills. JUGULAR VEINS: No jugular venous pressure or distention. CERVICAL LYMPH NODES: Nontender, nonenlarged. THYROID: Not enlarged. Nontender. No nodules. LUNGS: Respiratory effort, unlabored. CHEST: Normal curvature. No thoracic deformity. No chest wall tenderness. Percussion, resonant. Auscultation, clear. No wheezes, no rales, no rhonchi. CARDIOVASCULAR: Precordial exam, nondisplaced. No heaves or pericardial thrills. Rate and rhythm, regular. Heart sounds, normal S1, normal S2. No S3, no gallop, no rub. Systolic murmur, not heard. Diastolic murmur, not heard. EXTREMITIES: No cyanosis, no edema. Peripheral pulses, full and equal in all extremities, except as noted. No bruits appreciated. ABDOMEN: Soft, nondistended. Normal aorta. No bruit. Nontender. No masses. CONSULT REPORT [id number] ISAEL KENDALL Liver, nontender, no hepatomegaly. Spleen, nontender, no splenomegaly. MUSCULOSKELETAL: No joint tenderness. No joint swelling. No erythema. NEUROLOGICAL: Normal gait, normal strength, normal tone. SKIN: Warm and dry. REVIEW OF SYSTEMS: The patient reports easy bruising but reports no swollen glands. The patient reports no fever, no night sweats, no significant weight gain, no significant weight loss. No significant exercise tolerance. The patient reports no dry eyes, no irritation, no vision change. Patient reports no difficulty hearing and no ear pain. Patient reports no frequent nose bleeds or nose and sinus problems. Patient reports on arm pain on exertion. No shortness of breath while lying down. No history of heart murmur. Patient reports no cough, no wheezing or coughing up blood. Patient reports no abdominal pain, no vomiting. Normal appetite. No diarrhea and not vomiting blood. No nausea and no constipation. Patient reports no incontinence. No difficulty urinating. No hematuria. No increased frequency. Patient reports no muscle aches. No weakness, no arthralgias, no back pain. No swelling of the extremities. Patient reports no abnormal mole, no jaundice, no rashes. Reports no loss of consciousness. No weakness and no numbness. No seizures, dizziness, or headaches. The patient reports no depression, no sleep disturbance, feeling safe in a relationship and no alcohol abuse. Patient reports on fatigue. Reports no runny nose or sinus pressure. No itching, no hives, and no frequent sneezing. OVERALL IMPRESSION: Medical noncompliance. Clearly, he needs rate slowing with the metoprolol and sotalol. We will restart these medications. At this time, I do not need to repeat coronary angiography. All he needs is medical management and noncompliance with the medical regimen. TRANSINT:[id number] Voice Confirmation ID: [id number] DOCUMENT ID: [id number] JOSHUA SANCHEZ MD at 1502 CC: [id number] DICTATION DATE: 03/05/17 1215 WHITEWASHER: 03/05/17 2141 ADM IN [facility] [address] [id number]
[2017-03-09] MEDS ORDERED: LASIX40 MG PO (15:21)
[2017-03-09] MEDS ORDERED: [UNRECOGNIZED DRUG - CODE] PO (15:22)
[2017-03-09] MEDS ORDERED: METOPROLOL TART50 MG PO (15:23)
--- NOTE | 2017-03-09 15:25 | NUR ---
SCHEDULED MEDICATIONS ADMINISTERED, WELL PRN OXY IR AND PHENERGAN SUPPOSITORY. PT DENIES FURTHER NEEDS. REMAINS IN BED AT THIS TIME. WILL CONTINUE WITH PLAN OF CARE.
[2017-03-09 16:09] VITALS: BP 124/88
--- NOTE | 2017-03-09 20:26 | NUR ---
PATIENT RESTING IN BED AND DENIES NEEDS AT THIS TIME. ADMINISTERED MEDS PER ORDERS. BED IN LOWEST POSITION AND CALL LIGHT WITHIN REACH. ENCOURAGED PATIENT TO CALL IF HE HAS NEEDS.
[2017-03-10] VITALS: BP 129/86
--- NOTE | 2017-03-10 02:50 | NUR ---
PT RESTING IN BED WITH NO ACUTE DISTRESS NOTED VOICES ALL NEEDS TO STAFF CALL LIGHT IN REACH SIDE RAILS UP
[2017-03-10 04:00] VITALS: BP 106/72
[2017-03-10 06:13] LABS: BASOPHILS 0.5 % (0-2); EOSINOPHILS 1.9 % (0-7); HEMATOCRIT 44.8 % (42.0-54.0); IMMATURE GRANULOCYTES 0.4 % (0-5); MCH 32.5 pg (26.0-34.0); MCHC 33.5 g/dL (31.0-37.0); MCV 97.2 fL (80.0-100.0); MEAN PLATELET VOLUME 10.9 fL (7.4-10.4); MONOCYTES 12.9 % (2-11); NEUTROPHILS 59.3 % (40-80); PLATELET COUNT 210 10x3/uL (130-400); RBC 4.61 10x6/uL (4.20-6.10); WBC 8.3 10x3/uL (4.8-10.8)
--- NOTE | 2017-03-10 07:20 | NUR ---
REPORT RECEIVED FROM PUBLICATIONS WRITER NURSE. CALL LIGHT IN REACH.
[2017-03-10 07:28] LABS: ANION GAP 12.7 mmol/L (8-16); BILIRUBIN - TOTAL 0.4 mg/dL (0.2-1.3); CALCIUM 8.4 mg/dL (8.5-10.1); CARBON DIOXIDE 28.7 mmol/L (21.0-32.0); POTASSIUM - SERUM 3.4 mmol/L (3.5-5.1)
[2017-03-10 07:30] LABS: CREATININE - SERUM 1.4 mg/dL (0.6-1.3)
[2017-03-10 08:17] VITALS: BP 104/58
--- NOTE | 2017-03-10 08:21 | NUR ---
ASSESSMENT COMPLETED. AM MEDS ADMINISTERED. REFUSES MIRALAX AT THIS TIME. ALSO REFUSES SCDs. 40 MEQ KCL PO PER ELECTROLYTE PROTOCOL. CALL LIGHT IN REACH. WILL CONTINUE WITH PLAN OF CARE.
--- NOTE | 2017-03-10 10:40 | NUR ---
AMBULATING IN HALLWAY ADLIB. TOLERATING WELL.
--- NOTE | 2017-03-10 11:23 | NUR ---
PATIENT DISCHARGING TO [facility] TO A SKILLED BED. ROBY WILL BE HERE AT 3:00 TO PROCESS SUPERVISOR. PATIENT NOTIFIED AND IS THANKFUL FOR THE HELP.
[2017-03-10 12:01] VITALS: BP 94/59
--- NOTE | 2017-03-10 12:25 | NUR ---
OXY IR 30 M GPO PER C/O PAIN OF 9. CALL LIGHT IN REACH.
--- NOTE | 2017-03-10 13:02 | NUR ---
AWAITING DC TO [facility]. DENIES NEEDS AT PRESENT.
--- NOTE | 2017-03-10 14:18 | NUR ---
IV DC'D WITH TIP INTACT. DC INSTRUCTIONS EXPLAINED TO PATIENT. VERBALIZED UNDERSTANDING.
--- NOTE | 2017-03-10 14:33 | NUR ---
REQUESTING IV GET RESTARTED SO THAT HE CAN GET IV ZOFRAN. EXPLAINED TO PATIENT THAT HE IS ABOUT TO [facility] WITH [facility] SO I WILL NOT BE ABLE TO RESITE HIS IV TO ONLY GIVE ONE MED THEN REMOVE IT AGAIN. PATIENT THEN ASKED IF I CAN GIVE THE ZOFRAN IM. I TOLD THE PATIENT I HAD NO ORDER TO GIVE IT AN IM INJECTION SO I COULD NOT DO THAT. PATIENT THEN ASKED ME TO CALL THE DOCTOR TO SEE IF HE COULD HAVE A "SHOT" OF NAUSEA MEDICINE. I EXPLAINED TO THE PATIENT THAT HE HAD A PHENERGAN SUPPOSITORY ORDERED THAT WOULD WORK JUST WELL THE SHOT. PATIENT STATED "OK" SO PHENERGAN SUPP PER ORDER. WILL NOW CALL REPORT TO [facility].
--- NOTE | 2017-03-10 14:47 | NUR ---
REPORT CALLED TO SERGIO CAMP, AT [facility].
--- NOTE | 2017-03-10 14:52 | NUR ---
LASIX PO PER ORDER. CALL LIGHT IN REACH. WAITING ON GROUP HOME TO PICK PATIENT UP.
--- NOTE | 2017-03-10 16:17 | NUR ---
SPOKE WITH ALBERTO AT [facility] AND SHE STATED THE [facility] IS STILL GOING TO PICK THE PATIENT UP. THEY ARE RUNNING A LITTLE BEHIND AT THIS TIME.
--- NOTE | 2017-03-10 17:15 | NUR ---
DC'D TO [facility] VEHICLE VIA WC WITH USP STAFF.
== END 2017-03-10 17:15 | DRG 310 ==
LOC: D.ER 02:49 → D.MS 05:51
PROVIDERS: Emergency Medicine; ADMIT Family Medicine
DX: I48.2 Chronic atrial fibrillation (principal); I25.10 Atherosclerotic heart disease of native coronary artery without angina pectoris; Z95.5 Presence of coronary angioplasty implant and graft; G89.4 Chronic pain syndrome; M54.5 Low back pain; Z91.14 Patient's other noncompliance with medication regimen; I10 Essential (primary) hypertension; Z95.0 Presence of cardiac pacemaker; E11.65 Type 2 diabetes mellitus with hyperglycemia; K21.9 Gastro-esophageal reflux disease without esophagitis

== ENCOUNTER 2017-03-13 05:50 | Emergency (ER) | payer MEDICARE ==
[2017-03-05 15:54] VITALS: BMI 42.8
[~2017-03-13 05:50] MED LIST changes: +LASIX40 MG PO; +METOPROLOL TART50 MG PO; +[UNRECOGNIZED DRUG - CODE] PO
[2017-03-13 06:19] LABS: BASOPHILS 0.6 % (0-2); EOSINOPHILS 1.6 % (0-7); HEMATOCRIT 44.1 % (42.0-54.0); HEMOGLOBIN 14.9 g/dL (13.5-17.5); IMMATURE GRANULOCYTES 0.5 % (0-5); LYMPHOCYTES 18.4 % (15-50); MCH 32.5 pg (26.0-34.0); MCHC 33.8 g/dL (31.0-37.0); MCV 96.3 fL (80.0-100.0); MEAN PLATELET VOLUME 10.7 fL (7.4-10.4); MONOCYTES 12.5 % (2-11); NEUTROPHILS 66.4 % (40-80); PLATELET COUNT 251 10x3/uL (130-400); RBC 4.58 10x6/uL (4.20-6.10); RDW 12.9 % (11.5-14.5); WBC 11.9 10x3/uL (4.8-10.8)
[2017-03-13 06:40] LABS: ALBUMIN 3.3 g/dL (3.4-5.0); ALKALINE PHOSPHATASE 215 U/L (46-116); ALT (SGPT) 108 U/L (10-68); BILIRUBIN - TOTAL 0.39 mg/dL (0.2-1.3); CALC OSMOLALITY 281 mosm/kg (275-300); CALCIUM 8.6 mg/dL (8.5-10.1); CARBON DIOXIDE 33.6 mmol/L (21.0-32.0); CHLORIDE - SERUM 100 mmol/L (98-107); CREATININE - SERUM 1.2 mg/dL (0.6-1.3); GLUCOSE 123 mg/dL (74-106); POTASSIUM - SERUM 3.9 mmol/L (3.5-5.1); PROTEIN - SERUM 7.5 g/dL (6.4-8.2); SODIUM 140 mmol/L (136-145); UREA NITROGEN 19 mg/dL (7-18); eGFR NON AFRICAN AMERICAN 64 mL/min (90-120)
[2017-03-13 06:52] LABS: CHOL - HDL RATIO 4.7 ratio (2.3-4.9); CHOLESTEROL, TOTAL 149 mg/dL (0-200); CKMB 3.6 U/L (0.0-3.6); CREATINE KINASE 75 UL (21-232); HDL CHOLESTEROL 32 mg/dL (32-96); PRO BNP 1600 pg/mL (0-125); TRIGLYCERIDE 431 mg/dL (30-200); TROPONIN-I 0.022 ng/mL (0.000-0.060)
== END 2017-03-13 08:48 | disposition home or self-care (01) ==
LOC: D.ER 05:50
PROVIDERS: Family Medicine
DX: I42.9 Cardiomyopathy, unspecified (principal); R11.10 Vomiting, unspecified; I50.9 Heart failure, unspecified; J44.9 Chronic obstructive pulmonary disease, unspecified; E11.9 Type 2 diabetes mellitus without complications; I48.91 Unspecified atrial fibrillation

== ENCOUNTER 2017-03-18 10:48 | Emergency (ER) | payer MEDICARE ==
[2017-03-05 15:54] VITALS: BMI 42.8
[2017-03-18 12:26] LABS: BASOPHILS 0.5 % (0-2); EOSINOPHILS 1.6 % (0-7); HEMOGLOBIN 13.1 g/dL (13.5-17.5); IMMATURE GRANULOCYTES 0.5 % (0-5); LYMPHOCYTES 20.2 % (15-50); MCH 32.1 pg (26.0-34.0); MCHC 33.6 g/dL (31.0-37.0); MCV 95.6 fL (80.0-100.0); MEAN PLATELET VOLUME 10.3 fL (7.4-10.4); NEUTROPHILS 67.2 % (40-80); PLATELET COUNT 225 10x3/uL (130-400); RBC 4.08 10x6/uL (4.20-6.10); WBC 9.3 10x3/uL (4.8-10.8)
[2017-03-18 12:50] LABS: ALBUMIN 2.9 g/dL (3.4-5.0); ALKALINE PHOSPHATASE 150 U/L (46-116); ALT (SGPT) 31 U/L (10-68); BILIRUBIN - TOTAL 0.47 mg/dL (0.2-1.3); CALC OSMOLALITY 281 mosm/kg (275-300); CALCIUM 8.5 mg/dL (8.5-10.1); CHLORIDE - SERUM 103 mmol/L (98-107); CREATININE - SERUM 1.1 mg/dL (0.6-1.3); GLUCOSE 125 mg/dL (74-106); POTASSIUM - SERUM 3.5 mmol/L (3.5-5.1); PROTEIN - SERUM 6.8 g/dL (6.4-8.2); SODIUM 140 mmol/L (136-145); UREA NITROGEN 18 mg/dL (7-18); eGFR NON AFRICAN AMERICAN 70 mL/min (90-120)
[2017-03-18 12:55] LABS: TROPONIN-I < 0.017 ng/mL (0.000-0.060)
== END 2017-03-18 16:29 | disposition home or self-care (01) ==
LOC: D.ER 10:48
PROVIDERS: Emergency Medicine
DX: G62.9 Polyneuropathy, unspecified (principal); I42.9 Cardiomyopathy, unspecified; I50.9 Heart failure, unspecified; J44.9 Chronic obstructive pulmonary disease, unspecified; E11.9 Type 2 diabetes mellitus without complications; I48.91 Unspecified atrial fibrillation

== ENCOUNTER 2017-04-03 00:19 | Emergency (ER) | payer MEDICARE ==
[2017-03-05 15:54] VITALS: BMI 42.8
== END 2017-04-03 01:19 | disposition home or self-care (01) ==
LOC: D.ER 00:19
DX: I50.9 Heart failure, unspecified (principal); E11.9 Type 2 diabetes mellitus without complications; J44.9 Chronic obstructive pulmonary disease, unspecified

== ENCOUNTER 2017-04-07 08:25 | Emergency (ER) | payer MEDICARE ==
[2017-03-05 15:54] VITALS: BMI 42.8
== END 2017-04-07 15:17 | disposition left against medical advice (07) ==
LOC: D.ER 08:25
DX: R07.9 Chest pain, unspecified (principal); I50.9 Heart failure, unspecified; I48.91 Unspecified atrial fibrillation; E11.9 Type 2 diabetes mellitus without complications; J44.9 Chronic obstructive pulmonary disease, unspecified

== ENCOUNTER 2017-04-08 04:30 | Observation (INO) | payer MEDICARE ==
[~2017-04-08] VITALS: Ht 175.3 cm; Wt 136.1 kg
[2017-04-08 05:43] LABS: ALBUMIN 3.1 g/dL (3.4-5.0); ALKALINE PHOSPHATASE 154 U/L (46-116); ALT (SGPT) 36 U/L (10-68); BILIRUBIN - TOTAL 0.61 mg/dL (0.2-1.3); CALC OSMOLALITY 284 mosm/kg (275-300); CARBON DIOXIDE 25.9 mmol/L (21.0-32.0); CHLORIDE - SERUM 105 mmol/L (98-107); GLUCOSE 135 mg/dL (74-106); POTASSIUM - SERUM 4.5 mmol/L (3.5-5.1); PROTEIN - SERUM 6.8 g/dL (6.4-8.2); SODIUM 141 mmol/L (136-145); UREA NITROGEN 18 mg/dL (7-18); eGFR NON AFRICAN AMERICAN 78 mL/min (90-120)
[2017-04-08 05:52] LABS: BASOPHILS 0.2 % (0-2); EOSINOPHILS 1.4 % (0-7); HEMATOCRIT 38.4 % (42.0-54.0); HEMOGLOBIN 12.5 g/dL (13.5-17.5); IMMATURE GRANULOCYTES 0.5 % (0-5); MCH 32.1 pg (26.0-34.0); MCHC 32.6 g/dL (31.0-37.0); MCV 98.7 fL (80.0-100.0); MEAN PLATELET VOLUME 10.2 fL (7.4-10.4); MONOCYTES 7.3 % (2-11); NEUTROPHILS 76.6 % (40-80); PLATELET COUNT 185 10x3/uL (130-400); RBC 3.89 10x6/uL (4.20-6.10); RDW 13.7 % (11.5-14.5); WBC 8.4 10x3/uL (4.8-10.8)
[2017-04-08 05:53] LABS: CHOL - HDL RATIO 2.8 ratio (2.3-4.9); CHOLESTEROL, TOTAL 121 mg/dL (0-200); CKMB 2.6 U/L (0.0-3.6); CREATINE KINASE 123 UL (21-232); HDL CHOLESTEROL 44 mg/dL (32-96); LDL CHOLESTEROL 57 mg/dL (0-100); LDL-HDL RATIO 1.3 ratio (1.5-3.5); PRO BNP 1981 pg/mL (0-125); TRIGLYCERIDE 100 mg/dL (30-200); TROPONIN-I 0.027 ng/mL (0.000-0.060)
--- NOTE | 2017-04-08 07:42 | NUR ---
TRANSFER FROM ER BY STRETCHER. OREINTED TO ROOM. CALL LIGHT IN REACH. WILL CONT. PLAN OF CARE.
[2017-04-08 09:24] LABS: INR 0.96 (0.85-1.17); PROTIME 12.6 SECONDS (11.6-15.0)
[2017-04-08 10:52] VITALS: BP 137/88
[2017-04-08 12:05] VITALS: BP 149/87
--- NOTE | 2017-04-08 13:57 | NUR ---
ALERT AND ORIENTED X4. STANDING UP IN ERVIN DEMANDING IV BE REMOVED TO BE ABLE TO LEAVE. OFFER TO GET TO COME TALK. REFUSE TO TALK TO DOCTOR. DC LT AC IV TIP INTACT. AMA PAPERS SIGNED. NOTIFIED. AMBULATES OFF UNIT.
[2017-04-08 13:58] VITALS: Ht 175.3 cm; Wt 136.1 kg
--- NOTE | 2017-04-10 11:24 | EC ---
PATIENT:ISAEL KENDALL DATE OF SERVICE: 04/08/17 SEX: M MEDICAL RECORD: [id number] DATE OF : 47 LOCATION:D.M2 D.211 AGE OF PATIENT: 71 ADMISSION DATE: 04/08/17 REFERRING PHYSICIAN: INTERPRETING PHYSICIAN: JOSHUA SANCHEZ MD ECHOCARDIOGRAM REPORT ECHO CHARGES 4 ECHO COMPLETE CLINICAL DIAGNOSIS: A-FIB WITH RVR ECHOCARDIOGRAPHIC MEASUREMENTS (adult normal given) AC root (d.<3.7cm) 3.3 cm LV Septum d (<1.2 cm> 1.5 cm Valve Excursion 1.9 cm LV Septum (systole) 2.3 cm Left Atria (s.<4.0cm> 4.9 cm LVPW d(<1.2cm) 1.3 cm RV (d.<2.3cm) 3.1 cm LVPW (sytole) 2.2 cm LV diastole(<5.6CM) 6.5 cm MV E-F(>70mm/sec) cm LV systole 3.4 cm LVOT Diameter 2.2 cm MV exc.(>10mm) cm Est.ejection fraction (50-75%) % Pericardial Effusion N DOPPLER: LVIT cm/sec A cm/sec E 157 cm/sec LA cm/sec RVSP 35.2 mmHg LVOT 157 cm/sec AOP1/2T m/s Asc. Ao 214 cm/sec RVOT 90.0 cm/sec RA cm/sec PA 119 cm/sec AV Gradient Peak 18.4 mmHg AV Mean 8.5 mmHg AV Area 2.7 cm MV Gradient Peak 11.0 mmHg MV Mean 3.7 mmHg MV Area cm COMMENTS: Speech Pathology Supervisor: 1 ANNA ESCALANTEOE Analysis Tester: 2 Dr. Jason TAPE# PACS DATE OF SERVICE: 04/08/2017 Echocardiogram FINDINGS: 1. Left ventricle chamber size is mildly dilated. Left ventricular systolic function is preserved. Overall ejection fraction estimated at 55%. 2. Left atrium, right atrium, and right ventricular chamber sizes are [id number] dilated giving 4-chamber dilatation. Left atrium measures 4.9 cm. ECHOCARDIOGRAM REPORT [id number] ISAEL KENDALL 3. Valvular structures have normal structure and motion. 4. Doppler interrogation reveals moderate mitral regurgitation, mild tricuspid regurgitation, no other valvular insufficiency or stenosis and pulmonary systolic pressure is normal estimated at 35 mmHg. 4. No evidence of pericardial effusion or left ventricular thrombus. TRANSINT:[id number] Voice Confirmation ID: [id number] DOCUMENT ID: [id number] JOSHUA SANCHEZ MD at 1124 CC: [id number] DICTATION DATE: 04/08/17 1723 ASSOCIATE ACCOUNTANT: 04/09/17 0138 DIS IN 04/08/17 [place] [address] [id number] [place] [place] [id number]
== END 2017-04-08 13:59 | disposition left against medical advice (07) ==
LOC: D.ER 04:30 → OBSVTIME 07:17 → D.M2 07:17
PROVIDERS: Emergency Medicine; Family Medicine; ADMIT Family Medicine
DX: I48.91 Unspecified atrial fibrillation (principal); I25.10 Atherosclerotic heart disease of native coronary artery without angina pectoris; I08.1 Rheumatic disorders of both mitral and tricuspid valves; Z91.19 Patient's noncompliance with other medical treatment and regimen; I50.9 Heart failure, unspecified; E11.40 Type 2 diabetes mellitus with diabetic neuropathy, unspecified; E11.65 Type 2 diabetes mellitus with hyperglycemia; Z95.0 Presence of cardiac pacemaker

== ENCOUNTER 2017-06-10 08:47 | Emergency (ER) | payer OTHER ==
[2017-04-08 13:58] VITALS: BMI 44.3
== END 2017-06-10 10:30 | disposition home or self-care (01) ==
LOC: D.ER 08:47
DX: I10 Essential (primary) hypertension (principal)

== ENCOUNTER 2017-06-11 06:22 | Emergency (ER) | payer OTHER ==
[2017-04-08 13:58] VITALS: BMI 44.3
== END 2017-06-11 06:54 | disposition left against medical advice (07) ==
LOC: D.ER 06:22
DX: I50.9 Heart failure, unspecified (principal); J44.9 Chronic obstructive pulmonary disease, unspecified; E11.9 Type 2 diabetes mellitus without complications; I10 Essential (primary) hypertension; I48.91 Unspecified atrial fibrillation